=== PATIENT | male | born 1945 | race Caucasian/White ===

== ENCOUNTER → 2023-11-08 13:19 | Outpatient (REF) | payer MEDICARE, BC, SELFPAY ==
[2023-11-08 14:20] LABS: % Basophils 0.9 % (0-2); % Eosinophils 3.6 % (0-6); % Immature Granulocytes 0.6 % (0-0.5); % Lymphocytes 16.2 % (20.5-51.1); % Monocytes 8.3 % (1.7-9.3); % Neutrophils 70.4 % (42.2-75.2); Absolute Basophils 0.1 10^3/uL (0-0.2); Absolute Eosinophils 0.3 10^3/uL (0-0.7); Absolute Immature Granulocytes 0.1 10^3/uL (0-0.05); Absolute Lymphocytes 1.4 10^3/uL (1.2-3.4); Absolute Monocytes 0.7 10^3/uL (0.1-0.6); Absolute Neutrophils 6.2 10^3/uL (1.4-6.5); Hematocrit 51.8 % (39.0-52.0); Hemoglobin 17.2 g/dL (13.0-18.0); Mean Corp Hgb Conc. 33.2 g/dL (33.0-37.0); Mean Corpuscular Hgb 31.7 pg (27.0-31.0); Mean Corpuscular Volume 95.6 fL (80.0-94.0); Mean Platelet Volume 11.8 fL (7.4-10.4); Nucleated Red Blood Cells % 0 % (-); Platelet Count 225 10^3/uL (130-400); Red Blood Cell Count 5.42 10^6/uL (4.70-6.10); Red Cell Dist. Width 13.6 % (11.5-14.5); White Blood Cell Count 8.8 10^3/uL (4.8-10.8)
== END ==
LOC: REG 13:19
PROVIDERS: ATTENDING PHYSICIAN Internal Medicine
DX: J45.50 Severe persistent asthma, uncomplicated (principal); J30.9 Allergic rhinitis, unspecified
CPT/HCPCS: 36415; 85025

== ENCOUNTER 2024-06-12 12:54 | Emergency (ER) | payer MEDICARE, BC, SELFPAY ==
[2024-06-12 12:58] VITALS: BP 161/102
[2024-06-12 14:00] VITALS: BP 159/98
[2024-06-12 15:02] VITALS: BP 146/71; BMI 26.6
--- NOTE | 2024-06-12 15:36 | ED.GENMED ---
History of Present Illness
General
Chief Complaint: Fall
Source: patient
Exam Limitations: none
Time Seen by Provider: 06/12/24 13:47
Nursing documentation reviewed up to this point in time: agreed with
History of Present Illness
History of Present Illness:
78 y/o M
History of anxiety and asthma and sinus disease and poor gait says that he was bending over this morning trying to plug something in and accidentally fell and bumped his head against the wall. He was already in a squatting position when he hit the
top of his head. He had no loss of consciousness and is not anticoagulated. He lives in a memory care unit at [place] because his has dementia. He does not. He does have chronic tremor and ambulatory dysfunction. He does not use alcohol.
He has a mild headache where he hit his head but otherwise is feeling at his baseline.
Past History
Past History
ED Past Medical History: Asthma, Psychiatric and Other (Essential tremor)
Social History
Tobacco: Non-smoker
Alcohol: None
Review of Systems
Review of Systems
Allergies reviewed?: Yes
All Other Systems: Not applicable
Phy Exam
Physical Exam
Physical Exam:
GENERAL: Alert , in no apparent distress
HEAD: NCAT no signs of trauma
NECK: no midline tenderness, active ROM intact, no paraspinal muscle tenderness;
EYE: pupils equal and reactive, EOMs intact.
ENT: o/p clr, mmm. no hemotympanum
CARDIAC: Regular rate and rhythm, no edema
LUNGS: Clear breath sounds bilaterally, no acute respiratory distress, no wheezes/rales/rhonchi
ABDOMEN: Soft, without focal tenderness, no r/g, no cvat
NEUROLOGICAL: Alert and oriented, no focal neuro deficits, CN intact, 5/5 strength, sensation intact patient does need some help getting up and walking. He seems to have a slightly wider base gait and a essential tremor with intention only
SKIN: Warm and dry,
MUSCULOSKELETAL: No edema, well perfused.
PSYCH: Normal and appropriate interaction.
Course
Orders/Labs/Results
Orders:
Orders
06/12/24 14:23
CT Head W/o Iv Contrast Urgent
Comment:
Reason For Exam: HIT HEAD
Vital Signs
Initial and Last Documented VS:
Initial Vital Signs
Temp Pulse Resp BP Pulse Ox
99.1 F 53 18 161/102 95
06/12/24 12:58 06/12/24 12:58 06/12/24 12:58 06/12/24 12:58 06/12/24 12:58
Last Documented Vital Signs
Temp Pulse Resp BP Pulse Ox
97.6 F 86 16 146/71 99
06/12/24 15:02 06/12/24 15:02 06/12/24 15:02 06/12/24 15:02 06/12/24 15:02
MDM/Problems Addressed
Differential Diagnosis Includes:
Mild head injury, concussion
MDM/Problems Addressed:
78-year-old male presents after hitting his head from a squatting position against the wall when he lost his balance. Patient had no vomiting or loss of consciousness. He does have chronic gait instability and essential tremor. This is unchanged.
He has no findings on exam other than his tremor and wider base gait and poor balance.
His daughter says this is all chronic
CT was negative. Patient does have sinus disease seen on CT and he does have sinus congestion increased from baseline. He is on a lot of meds like antihistamines and Flonase for his sinuses but he has had worsening symptoms in the last 2 weeks.
Given that we will prescribe amoxicillin. Follow-up with the family doctor encouraged. Daughter will take him home
*Critical Care Note
Total Time (30-74mins, 75-104mins- exclusive of procedures): Not Applicable
ED Attending Note
-
Portions of this chart may have been created with voice recognition software.� Occasional wrong word or��sound alike� substitutions may have occurred due to the inherent limitations of voice recognition software.
Discharge Plan
Departure
Patient Disposition: Home (Routine Discharge)
Date of Disposition: 06/12/24
Time of Disposition: 17:03
Patient with high blood pressure during this ER visit?: Yes
Condition: Fair
Covid-19: Not Applicable
Discharge Problem:
Minor closed head injury
Instructions: Head Injury in Adults (DC), Sinusitis, Adult ED
Prescriptions:
New
amoxicillin 875 mg tablet
875 mg PO Q12H Qty: 14 0RF
Referrals:
NONE,* [Family Provider] -
Activity Restrictions/Additional Instructions:
YOUR CAT SCAN SHOWED NO FINDIGNS ASSOCIATED WITH SIGNIFICANT HEAD INJURY
YOU DO HAVE SINUSITIS ON CAT SCAN AND WERE HAVING MORE SYMPTOMS SO YOU CAN TAKE AMOXICILLIN TWICE A DAY FOR 7 DAYS
PLEASE TAKE TYLENOL FOR PAIN NEEDED
RETURN FO RANY CONCERNS LIKE SEVERE HEADACHE, VOMITING, CONFUSION, WEAKNESS O RNAY CONCERNS.
Interventions
Interventions:
*Risk Screen - Suicide Last Done: 06/12/24 13:01
*General Assessment Last Done: 06/12/24 13:01
*Neglect/Abuse Screening Last Done: 06/12/24 13:01
ED- Fall Risk Assessment Last Done: 06/12/24 15:02
*ED COVID-19 Vaccine History Last Done: 06/12/24 15:02
*Nursing Disposition Last Done: 06/12/24 17:36
ED-Musculoskeletal Assessment Last Done: 06/12/24 13:54
ED- Neurological Assessment Last Done: 06/12/24 13:54
ED-Skin Assessment Last Done: 06/12/24 15:02
Discharge Date and Time
Discharge Date/Time: 06/12/24 17:37
Print Language: YEMENI
== END 2024-06-12 17:37 | disposition home or self-care (01) ==
LOC: EMR 12:54
PROVIDERS: EMERGENCY PHYSICIAN Emergency Medicine
DX: S09.90XA Unspecified injury of head, initial encounter (principal); G44.309 Post-traumatic headache, unspecified, not intractable; R09.81 Nasal congestion; W19.XXXA Unspecified fall, initial encounter; R03.0 Elevated blood-pressure reading, without diagnosis of hypertension; J45.909 Unspecified asthma, uncomplicated; F41.9 Anxiety disorder, unspecified; G25.0 Essential tremor; H40.9 Unspecified glaucoma; R26.2 Difficulty in walking, not elsewhere classified; Z91.011 Allergy to milk products
CPT/HCPCS: 99284; 70450

== ENCOUNTER 2024-07-03 13:51 | Emergency (ER) | payer MEDICARE, BC, SELFPAY ==
[2024-07-03 13:55] VITALS: BP 130/91
[2024-07-03 14:54] VITALS: BP 136/85
[2024-07-03 14:59] VITALS: BMI 27.2
[2024-07-03 15:00] VITALS: BP 130/82
--- NOTE | 2024-07-03 15:26 | ED.GENMED ---
History of Present Illness
General
Chief Complaint: Breathing Problem
Time Seen by Provider: 07/03/24 15:07
History of Present Illness
History of Present Illness:
78-year-old male with history of asthma presenting to the emergency department for progressive dyspnea. Patient arrives with daughter who reports in the past month patient has had increasing shortness of breath and cough. She brought him to the
primary care office today, who was concerned that oxygenation was 90-92%, patient seemed dyspneic, so advised that he come to the hospital. Patient denies any chest pain. No recent fever. No known sick contacts. Patient denies any abdominal
pain. No history of intubations. Reports recent COVID and flu swab that was negative. Shortness of breath is worse with any type of exertion
Past History
Past History
ED Past Medical History: Asthma, Psychiatric and Other (Essential tremor)
Social History
Tobacco: Non-smoker
Alcohol: None
Phy Exam
Physical Exam
Physical Exam:
General: Well-appearing, no clinical signs of dehydration, nontoxic and in no acute distress
HEENT: protecting airway
Neck: appears supple
CV: Normal heart rate, regular rhythm, no evidence of cyanosis
Resp: No accessory muscle use, no increased work of breathing, lungs clear to auscultation bilaterally
Abd: Soft and non-distended, no tenderness to palpation
Extremities: No deformities, no swelling
Neuro: alert, no focal neurologic deficit
: deferred
Rectal: deferred
Psych: Normal affect
Skin: Intact
Scores
Heart Failure Risk
Heart Failure Risk Score: Not Applicable
Course
Orders/Labs/Results
Orders:
Orders
07/03/24 14:00
Electrocardiogram (*1) Urgent
Reason for Study: Shortness of Breath
07/03/24 14:01
EKG- Treatment ONCE
07/03/24 15:22
Ipratropium/Albuterol Sulfate [Duoneb] 3 ml INH R NOW ONE
MethylPREDNISolone PF [Solu-Medrol Pf] 125 mg IV NOW STA
07/03/24 15:23
CR Chest - 2 Views Urgent
Comment:
Reason For Exam: SOB, asthma, cough
07/03/24 15:29
Comprehensive Metabolic Panel Urgent
07/03/24 15:31
COVID-19 Antigen Urgent
Source: Nasal Swab
Complete Blood Count/With Diff Urgent
Influenza A+B Rapid Molecular Urgent
YVONNE Source: Nasal Swab
Specimen Description:
07/03/24 15:32
NT-proBNP Urgent
Abnormal Lab Results
07/03/24 07/03/24
15:29 15:31
MCH 31.5 H pg
(27.0-31.0)
MPV 10.8 H fL
(7.4-10.4)
Absolute Monos (auto) 0.8 H 10^3/uL
(0.1-0.6)
Lymphocytes % 14.3 L %
(20.5-51.1)
Eosinophils % 7.7 H %
(0-6)
Glucose 105 H mg/dl
(70-99)
AST 63 H U/L
(17-59)
ALT 63 H U/L
(0-50)
07/03/24 15:31
07/03/24 15:29
Vital Signs
Initial and Last Documented VS:
Initial Vital Signs
Temp Pulse Resp BP Pulse Ox
98.0 F 104 16 130/91 94
07/03/24 13:55 07/03/24 13:55 07/03/24 13:55 07/03/24 13:55 07/03/24 13:55
Last Documented Vital Signs
Temp Pulse Resp BP Pulse Ox
98.0 F 86 16 131/80 94
07/03/24 13:55 07/03/24 16:00 07/03/24 13:55 07/03/24 16:00 07/03/24 17:00
MDM/Problems Addressed
MDM/Problems Addressed:
78-year-old male with history of asthma presenting for worsening shortness of breath over the past month. Vital signs are normal.
On exam, patient is resting comfortably, no acute respiratory distress, no increased work of breathing. Benign lung exam, no focal abnormal lung sounds. Given reported symptoms, will screen with laboratory analysis and chest x-ray imaging to
evaluate constipation infectious pathology. Will send viral swabs. Will evaluate for pulmonary edema and obtain BNP in the setting of possible CHF. For treatment, patient requesting DuoNeb and steroids. Will start. Will reassess for improvement
and obtain ambulatory pulse ox
17:20 -patient's labs are unremarkable. Chest x-ray without acute cardiopulmonary disease. No leukocytosis. Normal BNP. Patient ambulated, no increased work of breathing, normal saturations. At this time continue to suspect mild asthma as
etiology of patient's symptoms. Feel stable for discharge, family in agreement. Will provide prescription for steroid. Return precautions discussed and patient verbalized understanding
*EKG
Interpreted by ED Provider?: Yes
EKG Intrepretation Date: 07/03/24
EKG Intrepretation Time: 15:33
Interpretation: normal
Comparison EKG: no comparison EKG present
Heart Rate: 95
Rate: normal
Rhythm: sinus
[place]: left axis deviation
Interval: normal interval
QRS Pattern: normal QRS
Ischemia: no ischemia
*Critical Care Note
Total Time (30-74mins, 75-104mins- exclusive of procedures): Not Applicable
ED Attending Note
-
Portions of this chart may have been created with voice recognition software.� Occasional wrong word or��sound alike� substitutions may have occurred due to the inherent limitations of voice recognition software.
Discharge Plan
Departure
Patient Disposition: Home (Routine Discharge)
Date of Disposition: 07/03/24
Time of Disposition: 17:26
Patient with high blood pressure during this ER visit?: No
Condition: Good
Discharge Problem:
Shortness of breath, Asthma exacerbation
Instructions: Asthma, Adult (DC), Shortness of Breath (Dyspnea) (DC)
Prescriptions:
New
prednisone 20 mg tablet
40 mg PO DAILY 5 Days Qty: 10 0RF
No Action
amoxicillin 875 mg tablet
875 mg PO Q12H Qty: 14 0RF
Referrals:
Ed Morris PA-C [Family Provider] -
Activity Restrictions/Additional Instructions:
You were seen in the emergency department for shortness of breath
You were found to have laboratory work and chest x-ray imaging, as well as viral swabs. You were prescribed a steroid
Please follow-up closely with your primary care physician.
Return to the emergency department for any worsening of your symptoms, or any development of chest pain, difficulty breathing, abdominal pain with persistent vomiting and inability to tolerate food or liquid by mouth (concern for dehydration),
weakness, headache or confusion, fever greater than 100.4, or any additional symptoms that are concerning to you.
Thank you for choosing [facility].
Interventions
Interventions:
*Risk Screen - Suicide Last Done: 07/03/24 13:55
*General Assessment Last Done: 07/03/24 14:59
*Neglect/Abuse Screening Last Done: 07/03/24 13:55
*ED COVID-19 Vaccine History Last Done: 07/03/24 14:59
*Nursing Disposition Last Done: 07/03/24 17:53
ED- Cardiac Assessment Last Done: 07/03/24 14:59
ED- Pulmonary Assessment Last Done: 07/03/24 14:59
Discharge Date and Time
Discharge Date/Time: 07/03/24 18:18
Print Language: ZAMBIAN
[2024-07-03] MEDS: SOLU-MEDROL PF 125 MG IV (15:33)
[2024-07-03] MEDS: DUONEB 3 ML INH (15:33)
[2024-07-03 15:51] LABS: % Eosinophils 7.7 % (0-6); % Immature Granulocytes 0.4 % (0-0.5); % Lymphocytes 14.3 % (20.5-51.1); % Monocytes 8.5 % (1.7-9.3); % Neutrophils 68.1 % (42.2-75.2); Absolute Basophils 0.1 10^3/uL (0-0.2); Absolute Eosinophils 0.7 10^3/uL (0-0.7); Absolute Lymphocytes 1.3 10^3/uL (1.2-3.4); Absolute Monocytes 0.8 10^3/uL (0.1-0.6); Absolute Neutrophils 6.1 10^3/uL (1.4-6.5); Hematocrit 47.9 % (39.0-52.0); Hemoglobin 16.2 g/dL (13.0-18.0); Mean Corp Hgb Conc. 33.8 g/dL (33.0-37.0); Mean Corpuscular Hgb 31.5 pg (27.0-31.0); Mean Platelet Volume 10.8 fL (7.4-10.4); Nucleated Red Blood Cells % 0 % (-); Platelet Count 204 10^3/uL (130-400); Red Blood Cell Count 5.15 10^6/uL (4.70-6.10); Red Cell Dist. Width 14.4 % (11.5-14.5)
[2024-07-03 16:00] VITALS: BP 131/80
[2024-07-03 16:05] LABS: COVID-19 Antigen Negative (Negative)
[2024-07-03 16:12] LABS: NT-proBNP 178 pg/ml
[2024-07-03 16:20] LABS: ALT (SGPT) 63 U/L (0-50); AST (SGOT) 63 U/L (17-59); Albumin 3.8 g/dl (3.5-5.0); Alkaline Phosphatase 124 U/L (38-126); Blood Urea Nitrogen 18 mg/dl (9-20); Carbon Dioxide 26 mmol/L (22-30); Chloride 103 mmol/L (98-107); Estimated Creatinine Clearance 56 ml/min; Glucose 105 mg/dl (70-99); Potassium 4.6 mmol/L (3.5-5.1); Sodium 139 mmol/L (135-145); Total Bilirubin 0.5 mg/dl (0.2-1.3); Total Protein 6.8 g/dl (6.3-8.2); eGFR > 60.00
== END 2024-07-03 18:18 | disposition home or self-care (01) ==
LOC: EMR 13:51
PROVIDERS: EMERGENCY PHYSICIAN Student in an Organized Health Care Education/Training Program; FAMILY PHYSICIAN Physician Assistant Medical
DX: J45.901 Unspecified asthma with (acute) exacerbation (principal)
CPT/HCPCS: 96374; 94640; 99285; 71046; 80053; 83880; 85025; 87502; 87811; 93005

== ENCOUNTER 2024-11-20 00:36 | Inpatient (IN) | payer MEDICARE, SELFPAY ==
[2024-11-19] VITALS (12 sets, daily range): BP systolic 136–172; BP diastolic 73–112; BMI 26.8
[2024-11-19 16:47] LABS: % Basophils 1.1 % (0-2); % Eosinophils 8.7 % (0-6); % Immature Granulocytes 0.4 % (0-0.5); % Lymphocytes 15.7 % (20.5-51.1); % Monocytes 9.1 % (1.7-9.3); Absolute Basophils 0.1 10^3/uL (0-0.2); Absolute Lymphocytes 1.8 10^3/uL (1.2-3.4); Absolute Neutrophils 7.3 10^3/uL (1.4-6.5); Hematocrit 54.4 % (39.0-52.0); Hemoglobin 18.2 g/dL (13.0-18.0); Mean Corp Hgb Conc. 33.5 g/dL (33.0-37.0); Mean Corpuscular Hgb 32.1 pg (27.0-31.0); Mean Corpuscular Volume 95.9 fL (80.0-94.0); Mean Platelet Volume 10.9 fL (7.4-10.4); Nucleated Red Blood Cells % 0 % (-); Platelet Count 220 10^3/uL (130-400); Red Blood Cell Count 5.67 10^6/uL (4.70-6.10); Red Cell Dist. Width 13.9 % (11.5-14.5); White Blood Cell Count 11.3 10^3/uL (4.8-10.8)
[2024-11-19 17:03] LABS: ALT (SGPT) 71 U/L (0-50); AST (SGOT) 64 U/L (17-59); Albumin 4.4 g/dl (3.5-5.0); Alkaline Phosphatase 147 U/L (38-126); Blood Urea Nitrogen 21 mg/dl (9-20); Calcium 9.2 mg/dl (8.4-10.2); Carbon Dioxide 25 mmol/L (22-30); Chloride 102 mmol/L (98-107); Glucose 118 mg/dl (70-99); Sodium 141 mmol/L (135-145); Total Protein 7.7 g/dl (6.3-8.2); eGFR > 60.00
[2024-11-19 19:18] LABS: Troponin I < 0.012 ng/ml
--- NOTE | 2024-11-19 20:21 | ED.GENMED ---
History of Present Illness
General
Chief Complaint: Breathing Problem
Source: patient and family
Exam Limitations: none
Time Seen by Provider: 11/19/24 19:04
Nursing documentation reviewed up to this point in time: agreed with
History of Present Illness
History of Present Illness:
79-year-old male with past medical history of asthma presents to the ER for evaluation of progressive shortness of breath. Patient reports symptoms worsening over the past 3 months. The past few weeks his dyspnea has been extreme to the point that
he is essentially always sitting in bed cannot move around without significant dyspnea and wheezing. He has had cough productive of clear mucus. He denies any associated chest pain. He denies any fevers or chills. No significant swelling or pain
in the legs. He went to see his asthma specialist today to follow-up there he was noted to have low normal pulse ox and given his reported symptoms he was referred to the ER to be assessed. He is on albuterol and Trelegy�has been compliant without
improvement.
Past History
Past History
ED Past Medical History: Asthma, Psychiatric and Other (Essential tremor)
Social History
Tobacco: Non-smoker
Alcohol: None
Review of Systems
Review of Systems
All Other Systems: ROS reviewed and negative except as documented in HPI and ROS
Constitutional: Denies fever or chills
Respiratory: Reports cough and trouble breathing
Cardiac: Denies chest pain
ABD/GI: Denies abdominal pain, nausea or vomiting
: Denies flank pain
Musculoskeletal: Denies edema
Neurological: Denies headache
Phy Exam
Physical Exam
Physical Exam:
General: Awake, alert; hard of hearing; no acute distress
Head: Normocephalic, atraumatic
Eyes: Conjunctiva normal
Throat: Airway intact, handling secretions
Neck: Trachea midline, no JVD
Lungs: Patient has low normal pulse ox 92% on room air; respiratory rate acceptable, no increased work of breathing; he does have diffuse wheezing with diminished air movement
Heart: Regular rate and rhythm, no murmurs, gallops, or rubs
Abd: Soft, non distended, nontender
Neuro: No gross deficits
Skin: no rash
Extremities: No edema in extremities, equal pulses in all extremities
Scores
Heart Failure Risk
Heart Failure Risk Score: Not Applicable
Heart Score for Chest Pain Patients
STEMI patient?: Not applicable
Withdrawal Assessment of Alcohol
Withdrawal Assessment Completed?: Not applicable
Course
Orders/Labs/Results
Orders:
Orders
11/19/24 16:25
Electrocardiogram (*1) Urgent
Reason for Study: Shortness of Breath
EKG- Treatment ONCE
CR Chest - 2 Views Urgent
Comment:
Reason For Exam: cough
11/19/24 16:38
Complete Blood Count/With Diff Urgent
Comprehensive Metabolic Panel Urgent
11/19/24 18:37
Troponin I Urgent
11/19/24 20:04
Ipratropium/Albuterol Sulfate [Duoneb] 3 ml INH R NOW ONE
MethylPREDNISolone PF [Solu-Medrol Pf] 125 mg IV NOW STA
11/19/24 20:05
CT Chest PE Study Urgent
Comment:
Reason For Exam: worsening SOB
Abnormal Lab Results
11/19/24
16:38
WBC 11.3 H 10^3/uL
(4.8-10.8)
Hgb 18.2 H g/dL
(13.0-18.0)
Hct 54.4 H %
(39.0-52.0)
MCV 95.9 H fL
(80.0-94.0)
MCH 32.1 H pg
(27.0-31.0)
MPV 10.9 H fL
(7.4-10.4)
Absolute Neuts (auto) 7.3 H 10^3/uL
(1.4-6.5)
Absolute Monos (auto) 1.0 H 10^3/uL
(0.1-0.6)
Absolute Eos (auto) 1.0 H 10^3/uL
(0-0.7)
Lymphocytes % 15.7 L %
(20.5-51.1)
Eosinophils % 8.7 H %
(0-6)
BUN 21 H mg/dl
(9-20)
Glucose 118 H mg/dl
(70-99)
AST 64 H U/L
(17-59)
ALT 71 H U/L
(0-50)
Alkaline Phosphatase 147 H U/L
(38-126)
11/19/24 16:38
11/19/24 16:38
Vital Signs
Initial and Last Documented VS:
Initial Vital Signs
Temp Pulse Resp BP Pulse Ox
36.9 C 119 18 153/104 93
11/19/24 16:20 11/19/24 16:20 11/19/24 16:20 11/19/24 16:20 11/19/24 16:20
Last Documented Vital Signs
Temp Pulse Resp BP Pulse Ox
37.1 C 109 20 159/112 95
11/19/24 20:00 11/19/24 21:15 11/19/24 22:00 11/19/24 21:04 11/19/24 22:00
MDM/Problems Addressed
Differential Diagnosis Includes:
Asthma exacerbation, pneumonia, PE
MDM/Problems Addressed:
79-year-old male with a history of asthma presents with worsening dyspnea over the past 3 months worse over the past week or 2 associate with low normal pulse ox noted in asthma specialist office today. Vitals and exam as above. Labs sent in
triage CBC shows marginal leukocytosis no other clinically significant abnormalities�LFTs mildly elevated but stable. EKG shows sinus rhythm, troponin undetectable�denies any chest pain. He had a chest x-ray in triage reviewed by me shows no
pneumonia or pneumothorax. Check CTA to rule out PE. Treat with methylprednisolone DuoNeb. Reassess after the above.
CTA shows no PE but does show findings consistent with bronchitis as well as right lower lobe pneumonia. Cover with antibiotics. Patient's wheezing improved but remains tachycardic, low normal pulse ox. Admit for continued treatment. Case
discussed with hospitalist.
Chronic conditions affecting care:
Asthma
Acute Exacerbation and/or Progression of Chronic Illness:
Acutely hypertensive�no signs or symptoms of hypertensive emergency no indication for emergent antihypertensive treatment
Acute asthma exacerbation treated with steroids and DuoNebs
Acute Exacerbation and/or Progression of Chronic Illness: HTN
*Radiology
Radiology exam reviewed: preliminary read by ED provider and radiology read reviewed
*Pulse Oximetry
Patient hypoxic: no
*EKG
Interpreted by ED Provider?: Yes
Heart Rate: 118
Rate: tachycardiac
Rhythm: sinus, PVC's and sinus tachycardia
[place]: left axis deviation
Interval: normal interval
QRS Pattern: left vent hypertrophy
Ischemia: non-specific ST changes
*Critical Care Note
Total Time (30-74mins, 75-104mins- exclusive of procedures): Not Applicable
Data Reviewed
Review of Other/Old Records Reveals: Labs and Records
Source: patient, records and family
Patient Management
Discussion with other providers: Hospitalist (Discussed with hospitalist)
Escalation/DeEscalation of care consider admission/obs:
Admission indicated
ED Attending Note
-
Portions of this chart may have been created with voice recognition software.� Occasional wrong word or��sound alike� substitutions may have occurred due to the inherent limitations of voice recognition software.
Discharge Plan
Departure
Patient Disposition: Admit
Date of Disposition: 11/19/24
Time of Disposition: 22:43
Admit to doctor: [facility]
Presentation/result/management discussed w/ accepting MD/DO: Hospitalist
Discharge Problem:
Acute asthma exacerbation, Pneumonia
Prescriptions:
No Action
amoxicillin 875 mg tablet
875 mg PO Q12H Qty: 14 0RF
prednisone 20 mg tablet
40 mg PO DAILY 5 Days Qty: 10 0RF
Referrals:
Ed Morris PA-C [Family Provider] -
Interventions
Interventions:
*Risk Screen - Suicide Last Done: 11/19/24 16:20
*General Assessment Last Done: 11/19/24 16:20
*Neglect/Abuse Screening Last Done: 11/19/24 16:20
*ED- Fall Risk Assessment Last Done: 11/19/24 18:46
ED- Cardiac Assessment Last Done: 11/19/24 18:46
ED- Pulmonary Assessment Last Done: 11/19/24 18:46
Discharge Date and Time
Print Language: SLOVENIAN
[2024-11-19] MEDS: DUONEB 3 ML INH (20:30)
[2024-11-19] MEDS: SOLU-MEDROL PF 125 MG IV (20:30)
--- NOTE | 2024-11-19 22:58 | HPS.HSE ---
Family Physician
-
Family Physician: Ed Morris PA-C
Chief Complaint
-
shortness of breath
History of Present Illness
Mr. Markell Rice is a 79 yo man with hx asthma presents to the ER with progressive shortness of breath.
History obtained from patient and daughter at baseline. He has had a history of severe asthma since he was little. He is on Trelegy and albuterol as needed. Over past couple of months he has has persistent wheezing. He was treated with 7 days of
Augmentin 2 weeks ago without significant improvement. He was seen as outpatient today for follow up and sent to the ER. He has increased sputum production and fatigue, per daughter he isn't doing much but sitting in his chair. He completed a
course of steroids 4-6 weeks ago.
He moved up from [place] with (who has dementia) one year ago.
No recent fevers. No chest pain. No nausea/vomiting/diarrhea. No LE swelling. He is eating and drinking OK.
Medical History
Past Medical History
Past Medical History: Reports Other (asthma, essential tremor )
Past Surgical History: Reports Other
Social History
Tobacco: Non-smoker
Alcohol: None
Family History
Family History: Not pertinent
Allergies / Home Medications
Allergies reflects when Allergies were last updated in [facility].
Home Medications with original date entered in [facility]
Allergy/Medication List:
Allergies
Allergy/AdvReac Type Severity Reaction Status Date / Time
Milk Containing Products Allergy Nausea / Verified 11/19/24 16:20
(Dairy) Vomiting
Home Medications
amoxicillin 875 mg tablet 875 mg PO Q12H #14 tabs 06/12/24
prednisone 20 mg tablet 40 mg (2 x 20 mg) PO DAILY 5 days #10 tabs 07/03/24
* med rec needs to be confirmed
Review of Systems
-
History Source: Patient
A 12 point ROS was completed and negative except as noted: Yes
Physical Exam
Vital Signs
Vital Signs
Temp Pulse Resp BP Pulse Ox
98.7 F 109 20 159/112 95
11/19/24 20:00 11/19/24 21:15 11/19/24 22:00 11/19/24 21:04 11/19/24 22:00
Physical Exam
General: No Apparent Distress
HEENT: PERRLA
Respiratory: Wheezes
Cardiac: S1/S2 and Regular Rhythm
GI: Soft and Non Tender
Musculoskeletal: No Edema
Skin: Warm and Dry; No Rash
Neuro: AO x 3
Psych: Calm
Laboratory Results
-
11/19/24 16:38
11/19/24 16:38
Laboratory Results
Total Bilirubin 1.0 mg/dl (0.2-1.3) 11/19/24 16:38
AST 64 U/L (17-59) H 11/19/24 16:38
ALT 71 U/L (0-50) H 11/19/24 16:38
Alkaline Phosphatase 147 U/L (38-126) H 11/19/24 16:38
Troponin I < 0.012 ng/ml 11/19/24 18:37
Data Reviewed
-
Diagnostic Radiology: Report Reviewed by me
Lab Data: Labs Reviewed by me
Impression/Plan
-
Mr. Markell Rice is a 79 yo man with hx asthma presents to the ER with progressive shortness of breath.
Triage VS: T 36.9C, P 119, RR 18, BP 153/104, SpO2 93%
LABS: WBC 11.3, Hg 18.2, PLT 220, Na 141, K+ 5.0, Cl 102, CO2 25m, BUN 21, Cr 1.1, Glucose 118, T. Bili 1.0, AST 64, ALT 71, Alk Phos 147, Trop < 0.012
CXR
IMPRESSION:
1. Moderate to large right lower lobe airspace consolidation. Diagnostic possibilities are (1) right lower lobe pneumonia or (2) atelectasis.
2. 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
3. Fusiform ascending thoracic aortic aneurysm.
4. Mild subpleural airspace consolidation in the left lower lung (mild pneumonia or atelectasis).
Chest CT
IMPRESSION:
1. Moderate to large airspace consolidation in the right lower lobe. Small subpleural airspace consolidations in the left lower lobe and lingula. Diagnostic possibilities are (1) RIGHT LOWER LOBE PNEUMONIA and other smaller regions of pneumonia in
the left lung or (2) multifocal atelectasis.
2. Cylindrical and varicoid bronchiectasis in both upper lobes.
3. SEVERE BRONCHITIS in the LEFT LOWER LOBE.
4. LARGE RIGHT DIAPHRAGMATIC HERNIA containing the liver.
5. Fusiform ascending thoracic aortic aneurysm (4.3 cm diameter).
6. Mild bilateral hilar lymphadenopathy.
7. Solid 8 mm pulmonary nodules in the right middle lobe and lingula.
8. Large 11.5 cm right upper pole renal cyst.
9. Severe discogenic degenerative disease in the lower cervical spine.
MAR: IV Ceftriaxone/Azithromycin, IVF, methylprednisolone, duonebs
Sepsis 2/2 Right lower lobe Pneumonia
Acute Asthma Exacerbation
Severe Bronchitis
-patient s/p antibiotic and steroid courses as outpatient without improvement
-he is currenty not hypoxic, + wheezing on exam
-add on flu/covid
-Given recent treatment with Augmentin, will broaden abx to Cefepime and add on atypical coverage with Azithro
-standing Duonebs and PRN
-MECHANOTHERAPIST Trelegy
-Mucinex, [place]
-Pulmonary consult
Large diaphragmatic hernia - chronic
Pulmonary nodules
Elevated liver enzymes
-likely related to acute infection or recent abx use
-repeat liver enzymes tomorrow
DVT PPx lovenox subQ
DNR - discussed on admission
[2024-11-19] MEDS: NSS 1000 IV (23:07)
[2024-11-19] MEDS: ZITHROMAX INFUSION 250 IV (23:14)
[2024-11-19 23:32] LABS: Lactic Acid 1.7 mmol/L (0.7-2.0)
[2024-11-20] VITALS (8 sets, daily range): BP systolic 117–154; BP diastolic 75–105; PULSE 113; O2SAT 91; BMI 25.9
[2024-11-20 00:02] LABS: COVID-19 Antigen Negative (Negative)
[2024-11-20] MEDS: MUCINEX 600 MG PO ×2 (02:48→09:23)
[2024-11-20] MEDS: DECADRON 4 MG IV ×4 (05:43→23:09)
[2024-11-20] MEDS: STERILE WATER FOR INJECTION 10 ML IV ×3 (05:43→14:41)
[2024-11-20] MEDS: FLUSH (NSS) 4 FLUSH IV (05:44)
[2024-11-20] MEDS: MAXIPIME 1000 MG IV ×2 (05:44→12:40)
[2024-11-20] MEDS: SYMBICORT 80/4.5 MCG INHALER 2 PUFF INH (07:56)
[2024-11-20] MEDS: SPIRIVA RESPIMAT 2.5 MCG 2 PUFF INH (07:56)
[2024-11-20] MEDS: VENTOLIN NEBULES 2.5 MG INH (07:57)
[2024-11-20 08:33] LABS: % Basophils 0.2 % (0-2); % Immature Granulocytes 0.9 % (0-0.5); % Lymphocytes 10.3 % (20.5-51.1); % Monocytes 0.9 % (1.7-9.3); % Neutrophils 87.7 % (42.2-75.2); Absolute Immature Granulocytes 0.1 10^3/uL (0-0.05); Absolute Lymphocytes 0.6 10^3/uL (1.2-3.4); Absolute Monocytes 0.1 10^3/uL (0.1-0.6); Absolute Neutrophils 4.8 10^3/uL (1.4-6.5); Hematocrit 49.4 % (39.0-52.0); Hemoglobin 16.7 g/dL (13.0-18.0); Mean Corp Hgb Conc. 33.8 g/dL (33.0-37.0); Mean Corpuscular Hgb 32.1 pg (27.0-31.0); Mean Platelet Volume 11.7 fL (7.4-10.4); Nucleated Red Blood Cells % 0 % (-); Platelet Count 177 10^3/uL (130-400); Red Cell Dist. Width 13.7 % (11.5-14.5); White Blood Cell Count 5.4 10^3/uL (4.8-10.8)
--- NOTE | 2024-11-20 09:20 | W.PN.HOSP.TC ---
Today's Communication/Plan
-
Steroids. Antibiotics.
Assessment / Plan
Assessment / Plan
Physical exam:
General: Acutely ill
HEENT: Normocephalic, Atraumatic and Moist Mucous Membranes
Respiratory: Crackles in the right base; Bilateral wheezes; No Rales or Rhonchi
Cardiac: Regular Rhythm and S1/S2
GI: Soft, Nontender and Nondistended
Musculoskeletal: No Clubbing, No Cyanosis and No Edema
Neuro: Awake, Alert and Oriented
Psych: Calm
A/P:
Community-acquired pneumonia/probable sepsis:
Agree with IV antibiotics but changed to IV Rocephin and oral azithromycin to cover community-acquired organisms.
Negative influenza and COVID-19
Check strep and urine Legionella
Check sputum culture
PT eval
Discussed with at bedside
Asthma exacerbation:
Underlying moderate to severe persistent asthma on triple therapy
Continue IV steroid, dexamethasone 4 mg IV every 8
Continue bronchodilators
Pulmonary consult appreciated
Elevated LFTs:
Trending down appropriately
Can repeat as outpatient
Diaphragmatic hernia:
Moderate size by CT
Start PPI
DVT prophylaxis:
Lovenox SQ
CODE STATUS:
DNR
Anticipated Discharge: 24 - 48 hours
Subjective/Interval History
-
Date of Service: November 20, 2024
Patient complains of cough and shortness of breath. Afebrile.
Objective Data
-
Labs:
Laboratory Results
11/20/24
07:24
WBC 5.4
Hgb 16.7
Hct 49.4
Plt Count 177
Sodium Pending
Potassium Pending
Chloride Pending
Carbon Dioxide Pending
BUN Pending
Creatinine Pending
Glucose Pending
Calcium Pending
Total Bilirubin Pending
AST Pending
ALT Pending
Alkaline Phosphatase Pending
Vital Signs:
Vital Signs
Temp Pulse Resp BP Pulse Ox
97.6 F 93 18 154/105 95
11/20/24 07:45 11/20/24 08:02 11/20/24 08:02 11/20/24 07:45 11/20/24 08:02
I&O
11/19/24 11/20/24 11/21/24
06:59 06:59 06:59
Intake Total 120 / 120
Balance 120 / 120
--- NOTE | 2024-11-20 09:25 | CON.PUL ---
Consultation
Consultation Request
Date/Time Consultation Requested: 11/20/2024-8 AM
Date/Time Consultation Performed: 11/20/2024-8:30 AM
Requesting Provider: Hospitalist
Performing Provider: Dr. Mascorro
Reason for Consultation: Asthma exacerbation
Medical History
-
Chief Complaint: Shortness of breath
History of Present Illness:
87-year-old male lifelong non-smoker with a history of asthma recently moved to this area followed by Dr. Morris I believe maintained on Trelegy and albuterol admitted with a couple months of persistent wheezing and shortness of breath unresponsive
to outpatient therapy including antibiotics and steroids-pulmonary consulted for asthma 11/20/2024. The patient is somewhat of a poor historian. History suggest that he moved up from [place] and the patient states that he recently moved from
[place]. He believes he follows Dr. Morris. He told me he was on Flovent and history suggest he was on Trelegy as an outpatient. Nonetheless he complains of chronic wheezing and shortness of breath. Currently he is not short of breath at rest
and has no chest pain, chest tightness has a nonproductive cough. He did not complain of any abdominal pain, reflux, focal weakness or increased lower extremity swelling.
Past Medical History
Past Medical History: None (Asthma-suspect moderate to severe persistent. Essential tremor. Specifically no history of CAD, renal, gastrointestinal or neurologic disease)
Social History
Tobacco: Non-smoker
Alcohol: None
Drug: None
Personal:
Living: With Family
Occupational Exposures: No known asbestos exposure
Environmental Exposures: No known tuberculosis exposure
Family History
Family History: Reviewed & Not Pertinent
Allergies / Home Medications
Allergies
Allergy/AdvReac Type Severity Reaction Status Date / Time
Milk Containing Products Allergy Nausea / Verified 11/19/24 16:20
(Dairy) Vomiting
Home Medications
�Medication �Instructions �Recorded �Confirmed �Last Taken �Type
amoxicillin 875 mg tablet 875 mg PO Q12H #14 tabs 06/12/24 Unknown Rx
prednisone 20 mg tablet 40 mg (2 x 20 mg) PO DAILY 5 days 07/03/24 Unknown Rx
#10 tabs
fluticasone fur. 100 mcg-umeclid 1 inh inhalation DAILY 11/19/24 11/19/24 Unknown History
62.5 mcg-vilant 25 mcg
inhalat.powder (Trelegy Ellipta)
Review of Systems
-
Unable to Obtain full review of systems at this time due to: Other (Per HPI)
Vitals / Labs / Diagnostic Testing
Vital Signs
Temp Pulse Resp BP Pulse Ox
97.6 F 93 18 154/105 95
11/20/24 07:45 11/20/24 08:02 11/20/24 08:02 11/20/24 07:45 11/20/24 08:02
Lab Data
11/20/24 07:24
Microbiology
11/19/24 23:20 Nasal Swab Influenza Types A & B (VERONICA) - Final
Negative for Influenza A & B, NAAT
Negative results must be combined with clinical observations
and patient history.
Nucleic Acid Amplification test (NAAT)performed on the
[employer] platform.
Diagnostic Testing:
Physical Exam
-
Exam:
Well-nourished and well-developed in no apparent distress
HEENT-atraumatic, normocephalic
Neck-supple, no JVD, no bruit
Heart-regular rate and rhythm-systolic murmur
Chest with diminished breath sounds, prolonged expiratory time, expiratory wheezes and no crackles
Back without tenderness
Abdomen-soft, nontender, nondistended, no hepatosplenomegaly
Extremities-no cyanosis, clubbing, edema and good peripheral pulses
Integument-intact, no rashes, lesions or ecchymosis
Neurology-alert and oriented, nonfocal motor and sensory exam
Assessment
-
87-year-old male lifelong non-smoker with a history of asthma recently moved to this area followed by Dr. Morris I believe maintained on Trelegy and albuterol admitted with a couple months of persistent wheezing and shortness of breath unresponsive
to outpatient therapy including antibiotics and steroids-pulmonary consulted for asthma 11/20/2024.
Asthma-moderate to severe persistent with acute exacerbation
Pneumonia-right lower [id number]
Bronchiectasis
Pulmonary nodules
Transaminitis
Mild leukocytosis
Polycythemia on admission-hemoglobin 18.2
Hyperglycemia
Metabolic acidosis
Conditions present prior to admission:
Asthma-suspect moderate to severe persistent.
Essential tremor.
Bronchiectasis
Pulmonary nodules
Specifically no history of CAD, renal, gastrointestinal or neurologic disease
Plan
Historically the patient has asthma-moderate to severe persistent maintained on triple therapy with acute/subacute exacerbation and pneumonia
Continue to closely monitor for progression of severe exacerbation-
Respiratory rate >30
Tachycardia >120
accessary muscle use
Inability to speak full sentences
Inability be supine
Pulsus paradox, etc.
Monitor PEF
Obtain ABG if necessary to assess for hypercapnia
Supplemental oxygen as needed
High flow oxygen if needed
BiPAP/NIV if necessary
Inhaled beta agonist-albuterol nebulizers 4 times daily
Inhaled muscarinic antagonist-on Spiriva as well as Symbicort 80/4.5
Systemic steroids-Decadron 4 mg IV every 8 hours
Mucolytic's-intensify
Mucus clearing devices
Consider vest therapy especially in light of bronchiectasis
Check cultures
Sputum culture
Empiric antibiotics-on cefepime and azithromycin
Eventually obtain allergy testing, IgE level, eosinophils, etc.
Consider Biologics such as Xolair -anti-IgE, Nucala-IL-5 inhibitor, Kfofrzp-DW-8 inhibitor, or Dupixent-I L4/13 inhibitor or Tezspire
DVT prophylaxis-on Lovenox
Nutrition
Early mobilization
Recommend outpatient pulmonary [id number], consideration towards Biologics, radiographic follow-up of pneumonia as well as pulmonary nodules
Diagnostic data:
Chest x-ray 07/03/2024-NAD
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 chest 11/19/2024-no pulmonary embolism, large airspace consolidation right lower lobe, bronchiectasis both upper lobes, large right diaphragmatic hernia, mild bilateral hilar lymphadenopathy, solid 8 mm pulmonary nodule right middle lobe and
lingula, large 11.5 cm right upper pole renal cyst
Data Reviewed
-
EKG: Report reviewed by me
Radiology: Image personally visualized and interpreted and Report reviewed by me
CT Scan: Image personally visualized and interpreted and Report reviewed by me
Medical Tests (Nuc Med, Echo etc): Report reviewed by me
Labs: Labs reviewed by me
Old Records: Reviewed
Total Time Spent with Patient (in minutes): 55
[2024-11-20 09:38] LABS: ALT (SGPT) 62 U/L (0-50); AST (SGOT) 45 U/L (17-59); Albumin 3.8 g/dl (3.5-5.0); Alkaline Phosphatase 117 U/L (38-126); Blood Urea Nitrogen 18 mg/dl (9-20); Calcium 8.4 mg/dl (8.4-10.2); Carbon Dioxide 18 mmol/L (22-30); Chloride 105 mmol/L (98-107); Direct Bilirubin 0.2 mg/dl (0.0-0.4); Estimated Creatinine Clearance 71 ml/min; Glucose 174 mg/dl (70-99); Potassium 4.6 mmol/L (3.5-5.1); Sodium 137 mmol/L (135-145); Total Bilirubin 1.1 mg/dl (0.2-1.3); Total Protein 6.8 g/dl (6.3-8.2); eGFR > 60.00
[2024-11-20] MEDS: DUONEB 3 ML INH ×3 (10:44→17:49)
[2024-11-20] MEDS: PROTONIX 40 MG PO (14:41)
[2024-11-20] MEDS: ROCEPHIN 1000 MG IV (14:41)
--- NOTE | 2024-11-20 16:40 | CM ---
CM reviewed medical records. Patient lives at [facility]. Plan to return on discharge.
PLAN: Return to [place].
[2024-11-20] MEDS: PULMICORT 0.5 MG INH (17:49)
[2024-11-20] MEDS: LOVENOX 40 MG SC (17:53)
[2024-11-20] MEDS: MUCINEX 1200 MG PO (21:03)
[2024-11-20] MEDS: ZITHROMAX 500 MG PO (21:03)
--- NOTE | 2024-11-21 07:13 | PTCARENOTE ---
When pt awakened during the night when roommate admitted pt very confused, asking where he was, where his was, not understanding what was going on. Attempts at reorientation not completely successful but pt was able to fall asleep again.
[2024-11-21] MEDS: DUONEB 3 ML INH ×5 (07:25→23:54)
[2024-11-21] MEDS: PULMICORT 0.5 MG INH (07:26)
[2024-11-21] MEDS: MUCINEX 1200 MG PO ×2 (07:33→19:40)
[2024-11-21] MEDS: PROTONIX 40 MG PO (07:33)
[2024-11-21] MEDS: DECADRON 4 MG IV ×2 (07:33→19:40)
[2024-11-21 07:41] LABS: % Basophils 0.1 % (0-2); % Immature Granulocytes 0.7 % (0-0.5); % Lymphocytes 7.2 % (20.5-51.1); Absolute Immature Granulocytes 0.1 10^3/uL (0-0.05); Absolute Lymphocytes 0.7 10^3/uL (1.2-3.4); Absolute Monocytes 0.4 10^3/uL (0.1-0.6); Absolute Neutrophils 8.1 10^3/uL (1.4-6.5); Hematocrit 46.9 % (39.0-52.0); Hemoglobin 15.8 g/dL (13.0-18.0); Mean Corp Hgb Conc. 33.7 g/dL (33.0-37.0); Mean Corpuscular Volume 94.9 fL (80.0-94.0); Mean Platelet Volume 11.4 fL (7.4-10.4); Nucleated Red Blood Cells % 0 % (-); Platelet Count 155 10^3/uL (130-400); Red Blood Cell Count 4.94 10^6/uL (4.70-6.10); Red Cell Dist. Width 14.1 % (11.5-14.5); White Blood Cell Count 9.2 10^3/uL (4.8-10.8)
[2024-11-21 07:47] LABS: Blood Urea Nitrogen 22 mg/dl (9-20); Calcium 8.9 mg/dl (8.4-10.2); Carbon Dioxide 23 mmol/L (22-30); Chloride 106 mmol/L (98-107); Estimated Creatinine Clearance 63 ml/min; Glucose 143 mg/dl (70-99); Potassium 4.3 mmol/L (3.5-5.1); Sodium 138 mmol/L (135-145); eGFR > 60.00
[2024-11-21 07:56] VITALS: BP 152/100
--- NOTE | 2024-11-21 08:41 | W.PN.HOSP.TC ---
Today's Communication/Plan
-
Steroids bronchodilator and antibiotics. CT of the head
Assessment / Plan
Assessment / Plan
Physical exam:
General: Acutely ill
HEENT: Normocephalic, Atraumatic and Moist Mucous Membranes
Respiratory: Crackles in the right base; Bilateral wheezes; No Rales or Rhonchi
Cardiac: Regular Rhythm and S1/S2
GI: Soft, Nontender and Nondistended
Musculoskeletal: No Clubbing, No Cyanosis and No Edema
Neuro: Awake, Alert and Oriented
Psych: Calm
A/P:
Community-acquired pneumonia/probable sepsis:
Continue IV Rocephin and oral azithromycin.
Negative influenza and COVID-19
Check strep and urine Legionella
Check sputum culture
Blood cultures no growth
Discussed with family prior
PT recommends home health
Asthma exacerbation:
Underlying moderate to severe persistent asthma on triple therapy
Continue IV steroid, dexamethasone 4 mg IV every 8--> decreased to 4 mg IV every 12 hours today and follow pulmonary recommendations.
Continue bronchodilators
Pulmonary consult appreciated
Delirium:
Decreased doses of steroid
Maintain structure environment
Obtain CT of the head
Elevated LFTs:
Trending down appropriately
Can repeat as outpatient
Diaphragmatic hernia:
Moderate size by CT
Start PPI
DVT prophylaxis:
Lovenox SQ
CODE STATUS:
DNR
Total time spent on today's encounter was 52 minutes which included time spent in counseling the patient/family regarding diagnosis and treatment plan as listed above, goals of care, and symptom management. Case was discussed with nursing staff,
specialists, and care coordinators/case management. All labs and imaging personally reviewed by me. Remainder the time spent in detailed review of previous records, lab data, imaging, and other medical provider documentation.
Anticipated Discharge: 24 - 48 hours
Subjective/Interval History
-
Date of Service: November 21, 2024
Patient still have some cough and shortness of breath but the more pressing issue he is very confused. Afebrile
Objective Data
-
Labs:
Laboratory Results
11/21/24
06:59
WBC 9.2
Hgb 15.8
Hct 46.9
Plt Count 155
Sodium 138
Potassium 4.3
Chloride 106
Carbon Dioxide 23
BUN 22 H
Creatinine 0.9
Glucose 143 H
Calcium 8.9
Vital Signs:
Vital Signs
Temp Pulse Resp BP Pulse Ox
97.0 F 99 24 152/100 94
11/21/24 07:56 11/21/24 07:56 11/21/24 07:56 11/21/24 07:56 11/21/24 07:56
I&O
11/20/24 11/21/24 11/22/24
06:59 06:59 06:59
Intake Total 120 / 120 240 / 240
Balance 120 / 120 240 / 240
[2024-11-21] MEDS: NSS (PRESERVATIVE FREE) 0.5 ML IV (10:27)
[2024-11-21] MEDS: ATIVAN 1 MG IV (10:27)
[2024-11-21] MEDS: STERILE WATER FOR INJECTION 10 ML IV (13:21)
[2024-11-21] MEDS: ROCEPHIN 1000 MG IV (13:21)
--- NOTE | 2024-11-21 13:54 | CM ---
CM following re: discharge planning.
Reviewed pt's chart, met with pt and spoke to [facility] wholesale representative Chitra.
Pt is an 79 year old male, admitted with primary dx of Community-acquired pneumonia/probable sepsis.
Per Chitra from [facility], pt lives with his spouse at [facility], ambulates with a walker, has supportive daughter. Per Chitra, pt is at their memory care only because of his spouse who has Dementia. Per
Chitra, pt does not have Dementia, has some forgetfulness. Per Chitra, they use [facility]. Chitra stated that pt will be able to return back to their memory care facility when medically stable.
PCP: Ed Morris
Pharmacy: [facility]
D/C plan: return back to [facility] when medically stable with most likely [facility]. .
CM will follow with discharge plan updates as hospitalization progresses,
[2024-11-21 15:30] VITALS: BP 128/79
--- NOTE | 2024-11-21 16:00 | W.PN.PUL3 ---
Today's Communication / Plan
-
Continue systemic steroids and monitor for worsening mental status
Hopefully we can transition to prednisone taper in the next 1-2 days
He takes Trelegy as an outpatient and this can be resumed upon discharge
His absolute eosinophil count was 1000 on admission, hence he is a good candidate for biologic therapy if asthma symptoms are not controlled on triple inhaler therapy after discharge
Continue with antibiotics and would complete 5 days worth of Z-Theo and 7 days worth of beta-lactam
Aspiration precautions
Check sputum culture if he can produce a decent sample
Check urine antigens for Legionella + strep pneumonia
Follow-up blood cultures from admission (NGTD)
Pulmonary service will continue following outpatient follow-up be arranged; prior medical records from his former doctor in [place] should be obtained, which can be done in outpatient setting
Assessment
-
87-year-old male lifelong non-smoker with a history of asthma recently moved to this area followed by Dr. Morris I believe maintained on Trelegy and albuterol admitted with a couple months of persistent wheezing and shortness of breath unresponsive
to outpatient therapy including antibiotics and steroids-pulmonary consulted for asthma 11/20/2024.
Asthma-moderate to severe persistent with acute exacerbation
Eosinophilia with absolute eosinophils 1000 on admission
Pneumonia-right lower [id number]-[id number]
Bronchiectasis
Pulmonary nodules
Transaminitis with elevated ALT on admission
Mild leukocytosis now resolved
Polycythemia on admission-hemoglobin 18.2 was likely due to hemoconcentration as this is now resolved
Hyperglycemia now resolved
Metabolic acidosis now resolved
Conditions present prior to admission:
Asthma-suspect moderate to severe persistent.
Essential tremor.
Bronchiectasis
Pulmonary nodules
Specifically no history of CAD, renal, gastrointestinal or neurologic disease
Plan
Historically the patient has asthma-moderate to severe persistent maintained on triple therapy with acute/subacute exacerbation and pneumonia
He says that he is from [place] and normally only takes prednisone during flareups and otherwise is on Flovent and albuterol
He recently moved up here from [place] with his as she has dementia and his children had insisted that he come appear to be closer to them
He is not the best historian and this is likely due to acute encephalopathy from steroids - family says that he is not normally confused like this
Continue to closely monitor for progression of severe exacerbation-
Respiratory rate >30
Tachycardia >120
accessary muscle use
Inability to speak full sentences
Inability be supine
Pulsus paradox, etc.
Obtain ABG if necessary to assess for hypercapnia
Supplemental oxygen as needed --> currently on room air breathing comfortably
Continue with DuoNebs QID + budesonide BID
Continue systemic steroids and wean as he clinically improves --> wean today from Decadron 4 mg IV q8hr to q12hr
Can likely transition to prednisone taper over the next 1-2 days
He would need to be seen in the pulmonary office for asthma management and possibly biologic therapy as his absolute eosinophil count was 1000 on admission
Continue mucolytics with Mucinex
Mucus clearing devices with flutter valve
Consider vest therapy especially in light of bronchiectasis
Blood cultures collected on 11/19 so far show NGTD
Collect respiratory culture if he can produce a decent sample
Patient was initially on cefepime/Zithromax, and cefepime was narrowed to ceftriaxone on 11/20
Would continue a standard 5-day Z-Theo and also complete a 7-day course of beta-lactam
Eventually obtain allergy testing, IgE level, eosinophils, etc.
Consider Biologics such as Xolair -anti-IgE, Nucala-IL-5 inhibitor, Zavpemh-GW-8 inhibitor, or Dupixent-I L4/13 inhibitor or Tezspire
DVT prophylaxis-on Lovenox
Nutrition
Early mobilization
Recommend outpatient pulmonary [id number], consideration towards Biologics, radiographic follow-up of pneumonia as well as pulmonary nodules
Pulmonary service will continue to follow along
Diagnostic data:
Chest x-ray 07/03/2024-NAD
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 chest 11/19/2024-no pulmonary embolism, large airspace consolidation right lower lobe, bronchiectasis both upper lobes, large right diaphragmatic hernia, mild bilateral hilar lymphadenopathy, solid 8 mm pulmonary nodule right middle lobe and
lingula, large 11.5 cm right upper pole renal cyst
Total time spent today was 36 minutes for this encounter. Time includes reviewing laboratory test/imaging results, reviewing pertinent medical records, obtaining and reviewing medical history, performing an appropriate exam, ordering medications,
tests and procedures. Time also includes documentation of this encounter, coordinating patient care and communicating with other healthcare professionals. Total time does not include separately billed tests performed on this date of service.
Subjective Data
-
Date of Service:
Date of Service: November 21, 2024
Chief Complaint: Pulmonary Follow Up
Subjective:
Patient seen evaluate this morning. Has been confused as per the nurse, not knowing where he is and not easily redirectable. Currently denies cough or shortness of breath. Says he has been up out of bed and has been breathing well. Currently on
room air breathing comfortably, saturating 96%. He denies chest pain, ROQUE, nausea, fevers or chills.
Review of Systems
General: Other (Negative unless mentioned above)
Objective Data
Data Reviewed
Vital Signs / I&O / Oxygen:
Vital Signs
Temp Pulse Resp BP Pulse Ox
97.0 F 99 24 152/100 94
11/21/24 07:56 11/21/24 07:56 11/21/24 07:56 11/21/24 07:56 11/21/24 07:56
Intake and Output
11/20/24 11/21/24 11/22/24
06:59 06:59 06:59
Intake Total 120 / 120 240 / 240
Balance 120 / 120 240 / 240
SaO2 94
Physical Exam
General: Respiratory Distress (negative), Comfortable, Chills (negative) and Sweats (negative)
HEENT: Normocephalic and Anicteric
Cardiovascular: S1-S2 and Peripheral Edema (negative)
Respiratory: Wheeze (Faintly heard upon expiration bilaterally), Crackles (negative), Rhonchi (negative), Non-Labored Respirations and Stridor (negative)
GI: Soft, Non Distended, Non Tender and Normal Bowel Sounds
Neurology: Awake, Alert and Tremors (negative)
Skin: Warm, Dry, Cyanosis (negative) and Jaundice (negative)
Labs/Micro/Reports
Lab Data
11/21/24 06:59
11/21/24 06:59
Microbiology
11/19/24 23:07 Blood/Venous Blood Culture - Preliminary
No Growth in 24 hours- Final report to follow
11/19/24 23:07 Blood/Venous Blood Culture - Preliminary
No Growth in 24 hours- Final report to follow
11/19/24 23:20 Nasal Swab Influenza Types A & B (VERONICA) - Final
Negative for Influenza A & B, NAAT
Negative results must be combined with clinical observations
and patient history.
Nucleic Acid Amplification test (NAAT)performed on the
[employer] platform.
--- NOTE | 2024-11-21 16:12 | PTCARENOTE ---
PCT entered pt room for 1500 vitals. Pt HR noted to be in 120s at that time. Hospitalist notified. Pt placed on tele monitor. ST on tele, HRs 110s-120s. EKG obtained, confirming sinus tachycardia. Vitals otherwise stable. Pt asymptomatic. Daughter
at bedside, call mantilla in reach.
[2024-11-21] MEDS: LOPRESSOR 5 MG IV (17:15)
[2024-11-21] MEDS: LOVENOX 40 MG SC (17:18)
--- NOTE | 2024-11-21 17:57 | PTCARENOTE ---
5mg Lopressor IV given for increased HRs. Pt remains in sinus tachycardia with HRs now down to 100s-110s.
[2024-11-21] MEDS: PULMICORT INH (19:05)
[2024-11-21 19:31] VITALS: BP 127/73
[2024-11-21] MEDS: ATIVAN 0.5 MG IV (19:51)
[2024-11-21] MEDS: NSS (PRESERVATIVE FREE) 0.25 ML IV (19:52)
[2024-11-21] MEDS: ZITHROMAX 500 MG PO (20:02)
[2024-11-21 23:19] VITALS: BP 131/76
--- NOTE | 2024-11-22 03:01 | PTCARENOTE ---
Pt remains confused this shift, disoriented to time and place, intermittently attempting to remove tele monitor, did removed IV catheter at beginning of shift (replaced). Paranoid about the whereabouts of his wallet (verified with daughter Nancy that
she took it home with her), intermittently throwing legs over side of bed. Medicated with Ativan 0.5 mg IV with some relief obtained, pt. sleeping more than awake. NSR on the monitor rate 90's with sleep. Expiratory wheezing present, PA pulse ox
94-95% - PRN Duoneb effective. Able to void in urinal with assist, outstanding urine specimen collected and sent. Bed alarm on.
[2024-11-22 03:21] VITALS: BP 140/85
[2024-11-22 07:27] LABS: Blood Urea Nitrogen 26 mg/dl (9-20); Calcium 8.7 mg/dl (8.4-10.2); Carbon Dioxide 24 mmol/L (22-30); Chloride 107 mmol/L (98-107); Estimated Creatinine Clearance 63 ml/min; Glucose 144 mg/dl (70-99); Potassium 4.4 mmol/L (3.5-5.1); Sodium 139 mmol/L (135-145); eGFR > 60.00
[2024-11-22 07:31] VITALS: BP 136/84
[2024-11-22] MEDS: DUONEB 3 ML INH ×4 (08:10→19:07)
[2024-11-22] MEDS: PULMICORT 0.5 MG INH ×2 (08:10→19:07)
--- NOTE | 2024-11-22 08:40 | W.PN.HOSP.TC ---
Addendum entered and electronically signed by Frankie Cruz MD 11/22/24 17:40:
Will do CTA chest stat r/o PE given intermittent tachycardia (could be explained by riojas/asthma/b-agonists but not entirely so will proceed further w/u)
Original Note:
Today's Communication/Plan
-
Steroids bronchodilators and antibiotics
Assessment / Plan
Assessment / Plan
Physical exam:
General: Acutely ill
HEENT: Normocephalic, Atraumatic and Moist Mucous Membranes
Respiratory: No crackles today; Bilateral wheezes persist; No Rales or Rhonchi
Cardiac: Regular Rhythm and S1/S2
GI: Soft, Nontender and Nondistended
Musculoskeletal: No Clubbing, No Cyanosis and No Edema
Neuro: Awake, Alert and Oriented
Psych: Calm
A/P:
Community-acquired pneumonia/probable sepsis:
Continue IV Rocephin and oral azithromycin.
Negative influenza and COVID-19
Checking strep and urine Legionella
Checking sputum culture
Blood cultures no growth
Discussed with daughter at bedside today
PT recommends home health
Asthma exacerbation:
Underlying moderate to severe persistent asthma on triple therapy
Continue IV steroid, dexamethasone 4 mg IV every 8--> decreased to 4 mg IV every 12 hours yesterday. Unfortunately still wheezing so requires IV steroid and hopefully will switch to oral over the next 24 to 48 hours.
Continue bronchodilators
Pulmonary is thinking probably back to biologic if not better on triple therapy as outpatient
Pulmonary consult appreciated
Delirium:
Decreased doses of steroid yesterday
Maintain structure environment
Continue benzodiazepines although not ideal but he is already on it as outpatient and it is working.
Obtained CT of the head yesterday and no acute intracranial abnormality
Sinus tachycardia:
Improving
Continue cardiac monitoring
Elevated LFTs:
Trended down appropriately
Can repeat as outpatient
Diaphragmatic hernia:
Moderate size by CT
Continue PPI
DVT prophylaxis:
Lovenox SQ
CODE STATUS:
DNR
Total time spent on today's encounter was 52 minutes which included time spent in counseling the patient/family regarding diagnosis and treatment plan as listed above, goals of care, and symptom management. Case was discussed with nursing staff,
specialists, and care coordinators/case management. All labs and imaging personally reviewed by me. Remainder the time spent in detailed review of previous records, lab data, imaging, and other medical provider documentation.
Anticipated Discharge: > 48 hours
Subjective/Interval History
-
Date of Service: November 22, 2024
Patient with less cough. Still some shortness of breath and wheezes. Still having delirium but much less today-daughter at bedside.
Objective Data
-
Labs:
Laboratory Results
11/22/24
05:42
Sodium 139
Potassium 4.4
Chloride 107
Carbon Dioxide 24
BUN 26 H
Creatinine 0.9
Glucose 144 H
Calcium 8.7
Vital Signs:
Vital Signs
Temp Pulse Resp BP Pulse Ox
97.7 F 91 17 136/84 95
11/22/24 07:31 11/22/24 08:13 11/22/24 08:13 11/22/24 07:31 11/22/24 08:13
I&O
11/21/24 11/22/24 11/23/24
06:59 06:59 06:59
Intake Total 960 / 960
Output Total 200 / 200
Balance 760 / 760
[2024-11-22] MEDS: PROTONIX 40 MG PO (08:53)
[2024-11-22] MEDS: DECADRON 4 MG IV ×2 (08:53→19:34)
[2024-11-22] MEDS: MUCINEX 1200 MG PO ×2 (08:53→19:33)
[2024-11-22 11:33] VITALS: BP 140/89
[2024-11-22] MEDS: STERILE WATER FOR INJECTION 10 ML IV (13:24)
[2024-11-22] MEDS: ROCEPHIN 1000 MG IV (13:24)
[2024-11-22 15:58] VITALS: BP 124/84
--- NOTE | 2024-11-22 16:30 | W.PN.PUL3 ---
Today's Communication / Plan
-
Continue systemic steroids and monitor for worsening mental status
Can likely transition to prednisone taper tomorrow to 40mg daily and wean by 10mg every 5th day until off
He takes Trelegy as an outpatient and this can be resumed upon discharge
His absolute eosinophil count was 1000 on admission, hence he is a good candidate for biologic therapy if asthma symptoms are not controlled on triple inhaler therapy after discharge
Continue with antibiotics and would complete 5 days worth of Z-Theo and 7 days worth of beta-lactam
Aspiration precautions
Check sputum culture if he can produce a decent sample
Urine antigens for Legionella + strep pneumonia negative
CTA chest pending
Follow-up blood cultures from admission (NGTD)
Believe patient can be discharged tomorrow assuming that CTA is negative for an acute PE (appears negative to my view) and he is ambulating without significant respiratory difficulty
Pulmonary service will continue following; outpatient follow-up be arranged; prior medical records from his former doctor in [place] should be obtained, which can be done in outpatient setting
Assessment
-
87-year-old male lifelong non-smoker with a history of asthma recently moved to this area followed by Dr. Morris I believe maintained on Trelegy and albuterol admitted with a couple months of persistent wheezing and shortness of breath unresponsive
to outpatient therapy including antibiotics and steroids-pulmonary consulted for asthma 11/20/2024.
Asthma-moderate to severe persistent with acute exacerbation
Eosinophilia with absolute eosinophils 1000 on admission
Pneumonia-right lower [id number]
Bronchiectasis
Pulmonary nodules
Transaminitis with elevated ALT on admission
Mild leukocytosis now resolved
Polycythemia on admission-hemoglobin 18.2 was likely due to hemoconcentration as this is now resolved
Hyperglycemia now resolved
Metabolic acidosis now resolved
Conditions present prior to admission:
Asthma-suspect moderate to severe persistent.
Essential tremor.
Bronchiectasis
Pulmonary nodules
Specifically no history of CAD, renal, gastrointestinal or neurologic disease
Plan
Historically the patient has asthma-moderate to severe persistent maintained on triple therapy with acute/subacute exacerbation and pneumonia
He says that he is from [place] and normally only takes prednisone during flareups and otherwise is on Flovent and albuterol
He recently moved up here from [place] with his as she has dementia and his children had insisted that he come appear to be closer to them
He is not the best historian and this is likely due to acute encephalopathy from steroids - family says that he is not normally confused like this
Continue to closely monitor for progression of severe exacerbation-
Respiratory rate >30
Tachycardia >120
accessary muscle use
Inability to speak full sentences
Inability be supine
Pulsus paradox, etc.
Obtain ABG if necessary to assess for hypercapnia in these scenarios
Supplemental oxygen as needed --> currently on room air breathing comfortably
Continue with DuoNebs QID + budesonide BID
Continue systemic steroids and wean as he clinically improves --> weaned from Decadron 4 mg IV q8hr to q12hr
Tomorrow would transition to prednisone taper starting at 40mg daily and wean by 10mg every 5th day until off
He would need to be seen in the pulmonary office for asthma management and possibly biologic therapy as his absolute eosinophil count was 1000 on admission
Continue mucolytics with Mucinex
Mucus clearing devices with flutter valve
Consider vest therapy especially in light of bronchiectasis in upper lobes
Hospitalist ordering a CTA chest given his intermittent tachycardia to rule out an acute PE; suspicion for acute PE is low, and he likely has tachycardia due to current asthma exacerbation on DuoNebs
Blood cultures collected on 11/19 so far show NGTD
Collect respiratory culture if he can produce a decent sample
Urine antigens for Legionella + strep pneumonia both negative
Patient was initially on cefepime/Zithromax, and cefepime was narrowed to ceftriaxone on 11/20
Would continue a standard 5-day Z-Theo and also complete a 7-day course of beta-lactam
Eventually obtain allergy testing, IgE level, eosinophils, etc. as an outpatient
Consider Biologics such as Xolair -anti-IgE, Nucala-IL-5 inhibitor, Xzturox-BJ-4 inhibitor, or Dupixent-I L4/13 inhibitor or Tezspire
DVT prophylaxis-on Lovenox
Nutrition
Early mobilization
Recommend outpatient pulmonary [id number], consideration towards Biologics, radiographic follow-up of pneumonia as well as pulmonary nodules
Dispo planning: Believe that the patient will be ready for discharge by tomorrow assuming a CTA chest does not show anything concerning and he continues to ambulate without respiratory difficulty.
Pulmonary service will continue to follow along
Diagnostic data:
Chest x-ray 07/03/2024-NAD
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
CT chest 11/19/2024-no pulmonary embolism, large airspace consolidation right lower lobe, bronchiectasis both upper lobes, large right diaphragmatic hernia, mild bilateral hilar lymphadenopathy, solid 8 mm pulmonary nodule right middle lobe and
lingula, large 11.5 cm right upper pole renal cyst
Total time spent today was 38 minutes for this encounter. Time includes reviewing laboratory test/imaging results, reviewing pertinent medical records, obtaining and reviewing medical history, performing an appropriate exam, ordering medications,
tests and procedures. Time also includes documentation of this encounter, coordinating patient care and communicating with other healthcare professionals. Total time does not include separately billed tests performed on this date of service.
Subjective Data
-
Date of Service:
Date of Service: November 22, 2024
Chief Complaint: Pulmonary Follow Up
Subjective:
Patient was seen and evaluated today at bedside. He is very eager to go home. Currently on room air breathing comfortably. 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 He is occasionally tachycardic,
but he denies chest pain, ROQUE, nausea, fevers or chills.
Review of Systems
General: Other (Negative unless mentioned above)
Objective Data
Data Reviewed
Vital Signs / I&O / Oxygen:
Vital Signs
Temp Pulse Resp BP Pulse Ox
97.7 F 91 17 136/84 95
11/22/24 07:31 11/22/24 08:13 11/22/24 08:13 11/22/24 07:31 11/22/24 08:13
Intake and Output
11/21/24 11/22/24 11/23/24
06:59 06:59 06:59
Intake Total 960 / 960
Output Total 200 / 200
Balance 760 / 760
SaO2 95
Physical Exam
General: Respiratory Distress (negative), Comfortable, Chills (negative) and Sweats (negative)
HEENT: Normocephalic and Anicteric
Cardiovascular: S1-S2, Peripheral Edema (negative) and Other (Tachycardic)
Respiratory: Wheeze (Expiratory wheeze heard bilaterally), Crackles (negative), Rhonchi (negative), Non-Labored Respirations and Stridor (negative)
GI: Soft, Non Distended, Non Tender and Normal Bowel Sounds
Neurology: Awake, Alert and Tremors (negative)
Skin: Warm, Dry, Cyanosis (negative) and Jaundice (negative)
Labs/Micro/Reports
Lab Data
11/21/24 06:59
11/22/24 05:42
Microbiology
11/22/24 02:03 Urine Legionella Urinary Antigen - Final
Negative for Legionella pneumophila Serogroup 1 antigen.
A negative result does not rule out the possiblity of
Legionella infection due to other serogroups or species of
Legionella. Clinical correlation is recommended.
11/22/24 02:03 Urine Streptococcus pneumoniae Antigen (M - Final
Negative for Streptococcus pneumoniae antigen.
A negative result does not exclude infection with
Streptococcus pneumoniae. Clinical correlation is
recommended.
11/19/24 23:07 Blood/Venous Blood Culture - Preliminary
No Growth in 48 hours- Final report to follow
11/19/24 23:07 Blood/Venous Blood Culture - Preliminary
No Growth in 48 hours- Final report to follow
11/19/24 23:20 Nasal Swab Influenza Types A & B (VERONICA) - Final
Negative for Influenza A & B, NAAT
Negative results must be combined with clinical observations
and patient history.
Nucleic Acid Amplification test (NAAT)performed on the
[employer] platform.
[2024-11-22] MEDS: LOVENOX 40 MG SC (17:14)
[2024-11-22] MEDS: LOPRESSOR 5 MG IV (17:55)
[2024-11-22 19:00] VITALS: BP 146/89
--- NOTE | 2024-11-22 19:47 | PTCARENOTE ---
pt on stretcher to CT
[2024-11-22] MEDS: ZITHROMAX 500 MG PO (21:38)
[2024-11-22 21:52] LABS: Glucose - Point of Care 242 mg/dl (70-99)
[2024-11-22 23:00] VITALS: BP 127/83
[2024-11-23 03:00] VITALS: BP 143/90
[2024-11-23] MEDS: PULMICORT 0.5 MG INH (07:18)
[2024-11-23] MEDS: DUONEB 3 ML INH ×2 (07:18→11:24)
[2024-11-23 07:28] VITALS: BP 136/85
--- NOTE | 2024-11-23 08:00 | W.PN.PUL3 ---
Today's Communication / Plan
-
Transition to oral prednisone with taper as below
Continue budesonide, DuoNebs, this should continue as outpatient in the short-term
Continue azithromycin, would complete 03/29
Discontinue vest therapy
Ambulate and assess home oxygen
Will require short-term follow-up
Disposition efforts
Assessment
-
87-year-old male lifelong non-smoker with a history of asthma recently moved to this area followed by Dr. Morris I believe maintained on Trelegy and albuterol admitted with a couple months of persistent wheezing and shortness of breath unresponsive
to outpatient therapy including antibiotics and steroids-pulmonary consulted for asthma 11/20/2024.
Asthma-moderate to severe persistent with acute exacerbation
Eosinophilia with absolute eosinophils 1000 on admission
Pneumonia-right lower [id number]
Bronchiectasis
Pulmonary nodules
Transaminitis with elevated ALT on admission
Mild leukocytosis now resolved
Polycythemia on admission-hemoglobin 18.2 was likely due to hemoconcentration as this is now resolved
Hyperglycemia now resolved
Metabolic acidosis now resolved
Conditions present prior to admission:
Asthma-suspect moderate to severe persistent.
Essential tremor.
Bronchiectasis
Pulmonary nodules
Specifically no history of CAD, renal, gastrointestinal or neurologic disease
Plan/recommendations
At this time, patient appears to be comfortable
Chest exam is clear with decreased breath sounds, no wheezing
Reviewed CT chest 11/22. Negative for pulm embolism, elevated right hemidiaphragm with atelectasis, patchy mosaic pattern per my review with occasional patchy areas of bullous disease
Historically the patient has asthma-moderate to severe persistent maintained on triple therapy with acute/subacute exacerbation and pneumonia
He says that he is from [place] and normally only takes prednisone during flareups and otherwise is on Flovent and albuterol
He recently moved up here from [place] with his as she has dementia and his children had insisted that he come appear to be closer to them
He is not the best historian and this is likely due to acute encephalopathy from steroids - family says that he is not normally confused like this
Moving forward
Consider transition to oral prednisone. Appears to be comfortable at this time
Increase activity, ambulate
Continue with DuoNebs QID + budesonide BID
Continue systemic steroids and wean as he clinically improves --> weaned from Decadron 4 mg IV q8hr to q12hr
Consider transition to oral prednisone today
wean by 10mg every 5th day until off
He would need to be seen in the pulmonary office for asthma management and possibly biologic therapy as his absolute eosinophil count was 1000 on admission
Continue mucolytics with Mucinex
Mucus clearing devices with flutter valve
Will discontinue vest therapy
Blood cultures collected on 11/19 so far show NGTD
Collect respiratory culture if he can produce a decent sample
Urine antigens for Legionella + strep pneumonia both negative
Patient was initially on cefepime/Zithromax, and cefepime was narrowed to ceftriaxone on 11/20
Would continue a standard 5-day Z-Theo and also complete a 7-day course of beta-lactam
Eventually obtain allergy testing, IgE level, eosinophils, etc. as an outpatient
Consider Biologics such as Xolair -anti-IgE, Nucala-IL-5 inhibitor, Xedhdfi-PU-6 inhibitor, or Dupixent-I L4/13 inhibitor or Tezspire
Importance of outpatient follow-up discussed
DVT prophylaxis-on Lovenox
Nutrition
Early mobilization
Recommend outpatient pulmonary [id number], consideration towards Biologics, radiographic follow-up of pneumonia as well as pulmonary nodules
Disposition efforts
Diagnostic data:
Chest x-ray 07/03/2024-NAD
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
CT chest 11/19/2024-no pulmonary embolism, large airspace consolidation right lower lobe, bronchiectasis both upper lobes, large right diaphragmatic hernia, mild bilateral hilar lymphadenopathy, solid 8 mm pulmonary nodule right middle lobe and
lingula, large 11.5 cm right upper pole renal cyst
Total time spent today was 38 minutes for this encounter. Time includes reviewing laboratory test/imaging results, reviewing pertinent medical records, obtaining and reviewing medical history, performing an appropriate exam, ordering medications,
tests and procedures. Time also includes documentation of this encounter, coordinating patient care and communicating with other healthcare professionals. Total time does not include separately billed tests performed on this date of service.
Subjective Data
-
Date of Service:
Date of Service: November 23, 2024
Chief Complaint: Pulmonary Follow Up
Subjective:
Patient is without complaints this morning. Presently on room air. Denies chest pain, chest tightness, lightheadedness, dizziness, palpitations
Objective Data
Data Reviewed
Vital Signs / I&O / Oxygen:
Vital Signs
Temp Pulse Resp BP Pulse Ox
97.9 F 93 16 136/85 95
11/23/24 07:28 11/23/24 07:28 11/23/24 07:28 11/23/24 07:28 11/23/24 07:28
Intake and Output
11/22/24 11/23/24 11/24/24
06:59 06:59 06:59
Intake Total 960 / 960 1440 / 1440
Output Total 200 / 200
Balance 760 / 760 1440 / 1440
SaO2 95
Physical Exam
General: Comfortable
HEENT: Normocephalic and Anicteric
Cardiovascular: S1-S2, Regular Rhythm, Murmur (n), Rub (n), Peripheral Edema (negative) and Other (Tachycardic)
Respiratory: Wheeze (Expiratory wheeze heard bilaterally), Crackles (negative), Rhonchi (negative), Non-Labored Respirations, Stridor (negative) and Other (Decreased)
GI: Soft, Non Distended, Non Tender and Normal Bowel Sounds
Neurology: Awake, Alert and Tremors (negative)
Skin: Warm, Dry, Cyanosis (negative) and Jaundice (negative)
Labs/Micro/Reports
Lab Data
11/21/24 06:59
11/22/24 05:42
Microbiology
11/19/24 23:07 Blood/Venous Blood Culture - Preliminary
No Growth in 72 hours- Final report to follow
11/19/24 23:07 Blood/Venous Blood Culture - Preliminary
No Growth in 72 hours- Final report to follow
11/22/24 02:03 Urine Legionella Urinary Antigen - Final
Negative for Legionella pneumophila Serogroup 1 antigen.
A negative result does not rule out the possiblity of
Legionella infection due to other serogroups or species of
Legionella. Clinical correlation is recommended.
11/22/24 02:03 Urine Streptococcus pneumoniae Antigen (M - Final
Negative for Streptococcus pneumoniae antigen.
A negative result does not exclude infection with
Streptococcus pneumoniae. Clinical correlation is
recommended.
[2024-11-23] MEDS: PROTONIX 40 MG PO (08:55)
[2024-11-23] MEDS: MUCINEX 1200 MG PO (08:55)
[2024-11-23] MEDS: DECADRON IV ×2 (08:55→08:57)
[2024-11-23] MEDS: DELTASONE 50 MG PO (09:00)
--- NOTE | 2024-11-23 10:43 | W.PN.HOSP.TC ---
Today's Communication/Plan
-
dc
Assessment / Plan
Assessment / Plan
A/P:
Community-acquired pneumonia/probable sepsis:
Clinically improved. Afebrile. White count normal.
On IV Rocephin and oral azithromycin. Will finish 5 days of Zithromax and 7 days of beta-lactam.
Negative influenza and COVID-19
Negative strep and urine Legionella
Blood cultures no growth
PT recommends home health
Asthma exacerbation:
Underlying moderate to severe persistent asthma on triple therapy
On IV steroid, dexamethasone 4 mg IV every 8--> decreased to 4 mg IV every 12 hours -- > now switched to oral prednisone with a slow taper.
Continue bronchodilators
Pulmonary is thinking probably back to biologic if not better on triple therapy as outpatient
Pulmonary input from today noted-cleared for discharge from their end.
Delirium:
Resolved. He is alert and oriented today. No agitation.
Maintain structure environment
Continue benzodiazepines although not ideal but he is already on it as outpatient and it is working.
CT of the head- no acute intracranial abnormality
Sinus tachycardia:
Improved
Elevated LFTs:
Trended down appropriately
Follow as outpatient
Diaphragmatic hernia:
Moderate size by CT
Continue PPI
DVT prophylaxis:
Lovenox SQ
CODE STATUS:
DNR
Medically stable for discharge to his facility today
Discussed with daughter regarding treatments and follow-up plan.
More than 30 minutes spent in discharge including
Final examination of the patient
Summarizing hospital stay
Instructions for continuing care to all relevant caregivers
Preparation of discharge records, prescriptions, and referral forms
Total time spent (in minutes): 35
Anticipated Discharge: Today
Subjective/Interval History
-
Date of Service: November 23, 2024
Feeling improved. Denies shortness of breath. Minimal cough.
No fever chills.
No nausea vomiting.
Denies any chest pain.
Denies any dizziness.
Keen to go home.
He states he is lives in [facility] and would like to go back there.
Objective Data
-
Vital Signs:
Vital Signs
Temp Pulse Resp BP Pulse Ox
97.9 F 93 16 136/85 95
11/23/24 07:28 11/23/24 07:28 11/23/24 07:28 11/23/24 07:28 11/23/24 07:28
I&O
11/22/24 11/23/24 11/24/24
06:59 06:59 06:59
Intake Total 960 / 960 1440 / 1440
Output Total 200 / 200
Balance 760 / 760 1440 / 1440
Physical Exam
-
General: Comfortable
Respiratory: Non Labored Respirations; Negative Wheezes or Accessory Resp Muscle Use
Cardiac: Regular Rhythm and S1/S2; Negative Tachycardic
GI: Soft
Neuro: AO x 3
Psych: Calm
--- NOTE | 2024-11-23 11:15 | CM ---
Addendum entered by Dodie Yang RN 11/23/24 11:23:
CM sent referral via [facility] to [facility].
PLAN: DC to [place] with [facility]
Addendum entered by Dodie Yang RN 11/23/24 11:19:
CM spoke with patient's daughter who will pick patient up to return to [facility].
Original Note:
Patient is medically ready for discharge back to [place]
[facility]
Report
[phone]
fax
[phone]
[2024-11-23 11:20] VITALS: BP 143/83; PULSE 98
[2024-11-23 11:31] VITALS: BP 143/83
--- NOTE | 2024-11-23 17:03 | W.DCSUMMARY ---
Discharge Summary
Discharge Data
Date of Admission: 11/20/24
Date of Discharge: 11/23/24
-
Pending Results: No
Hospital Course
Primary diagnosis:
Community-acquired pneumonia
Asthma exacerbation
Elevated liver function tests
Diaphragmatic hernia
Secondary diagnosis:
Essential tremor
Bronchiectasis
Pulmonary nodules
Hospital course:
87-year-old gentleman who is a non-smoker and history of asthma presented with couple of months of persistent wheezing and shortness of breath and was unresponsive to outpatient treatment with antibiotics and steroids. He was noted to be in asthma
exacerbation on admission. His asthma is moderate to severe persistent. He had eosinophilia with absolute eosinophils more than thousand on admission but improved. Chest imaging imaging raise the concern of right lower lobe pneumonia. Chest CT
imaging showed bronchiectasis and pulmonary nodules which is known. He was seen by pulmonary. He improved with steroids and antibiotics for community-acquired pneumonia. Once he was clinically stable he was discharged home and advised to
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
There was mild transaminitis and AST normalized and ALT improved to 62 alk phos in 4 as well. Unclear if it is related to infection. Follow-up as an outpatient.
Consultants on board:
Pulmonary-Isidoro Winn
Discharge Plan
-
Patient Disposition: Home with Home Care
Discharge Diagnosis/Procedures: Right lung pneumonia and asthma flare
Diet: As tolerated
Activity: As tolerated
Driving Restrictions: As prior to admission
Bathing Restrictions: None
Other Services: VN
Activity Restrictions/Additional Instructions:
Follow with your PCP in a week after discharge
Referrals:
Ed Morris PA-C [Family Provider] -
Russ Mascorro MD [Active] - in one to two weeks (Control PFTs, consideration towards Biologics, radiographic follow-up of pulmonary nodules and pneumonia)
Prescriptions:
New
prednisone 10 mg tablet
10 mg PO DIRECTED Qty: 75 0RF
Rx Instructions:
Start with 50mg daily and taper by 10mg every 5 days
guaifenesin 600 mg Tablet Extended Release 12hr
1,200 mg PO Q12 Qty: 14 0RF
pantoprazole 40 mg Tablet,Delayed Release (Dr/Ec)
40 mg PO DAILY Qty: 30 0RF
Rx Instructions:
while on steroids
budesonide 0.5 mg/2 mL Suspension For Nebulization
0.5 mg inhalation R BID Qty: 60 0RF
ipratropium-albuterol 0.5 mg-3 mg(2.5 mg base)/3 mL Solution For Nebulization
3 ml inhalation R QID Qty: 180 0RF
cefdinir 300 mg capsule
300 mg PO BID Qty: 8 0RF
azithromycin 250 mg Tablet
500 mg PO DAILY@2200 Qty: 5 0RF
Continued
Trelegy Ellipta 100-62.5-25 mcg Blister With Device
1 inh INHALATION DAILY
Discontinued
amoxicillin 875 mg tablet
875 mg PO Q12H Qty: 14 0RF
prednisone 20 mg tablet
40 mg PO DAILY 5 Days Qty: 10 0RF
Discharge Orders:
Discharge Patient (As Directed); Ordered 11/23/24
Ordered By: Rao Strange
Discharge Date and Time
Discharge Date/Time: 11/23/24 13:00
Print Language: [place] CITIZ[place]
== END 2024-11-23 13:00 | disposition home health service (06) | DRG 871 ==
LOC: 1 ACUTE 00:36
PROVIDERS: Hospitalist; Student in an Organized Health Care Education/Training Program; ADMITTING PHYSICIAN Student in an Organized Health Care Education/Training Program; ATTENDING PHYSICIAN Internal Medicine; EMERGENCY PHYSICIAN Emergency Medicine; FAMILY PHYSICIAN Physician Assistant Medical; OTHER PHYSICIAN Internal Medicine Critical Care Medicine
DX: A41.9 Sepsis, unspecified organism (principal); J18.9 Pneumonia, unspecified organism; J45.901 Unspecified asthma with (acute) exacerbation; J47.0 Bronchiectasis with acute lower respiratory infection; E87.20 Acidosis, unspecified; K44.9 Diaphragmatic hernia without obstruction or gangrene; G25.0 Essential tremor; D72.10 Eosinophilia, unspecified; I71.21 Aneurysm of the ascending aorta, without rupture; J40 Bronchitis, not specified as acute or chronic; N28.1 Cyst of kidney, acquired; Z66 Do not resuscitate; Z79.52 Long term (current) use of systemic steroids; R41.0 Disorientation, unspecified; R00.0 Tachycardia, unspecified; D75.1 Secondary polycythemia; Z11.52 Encounter for screening for COVID-19
CPT/HCPCS: 70450; 71046; 71275; 80048; 80053; 82248; 82962; 83605; 84484; 85025; 87040; 87449; 87502; 87811; 87899; 93005; 94640; 94667; 94669; 96365; 96375; 97116; 97163; 99285; Q9967

== ENCOUNTER 2024-12-17 05:16 | Inpatient (IN) | payer MEDICARE, BC, SELFPAY ==
[2024-12-17] VITALS (7 sets, daily range): BP systolic 91–136; BP diastolic 55–97; BMI 25.4
--- NOTE | 2024-12-17 01:34 | ED.GENMED ---
History of Present Illness
General
Chief Complaint: Abdominal Pain
Source: patient, ambulance crew, senior living records, previous radiology exam and previous hospital records (Recent hospitalization November 20 to November 23 for treatment of acute exacerbation of asthma, community-acquired pneumonia.)
Exam Limitations: clinical condition (Somewhat cantankerous, poorly cooperative/poorly communicative.)
Time Seen by Provider: 12/17/24 01:25
Nursing documentation reviewed up to this point in time: agreed with
History of Present Illness
History of Present Illness:
This is an 79-year-old gentleman who resides at a local senior living with his who apparently has advanced dementia. He himself has history of asthma, bronchiectasis with recent hospitalization November 20 to November 23 for treatment of acute
exacerbation of asthma associated with community-acquired pneumonia. Discharged November 23 with lengthy prednisone taper which has since completed. Completed a course of cefdinir as well as Zithromax.
He presents tonight via EMS with initial complaints of overall not feeling well with some abdominal discomfort that began after dinner tonight.
He admits to intermittent nausea but denies vomiting.
According to EMS, senior living staff concern for GI bleeding. Patient adamantly denies rectal bleeding, denies passing a stool tonight, denies vomiting. He reports no history of previous GI bleeds.
Takes no anticoagulants.
He currently denies abdominal pain.
Past History
Past History
ED Past Medical History: Asthma (Asthma/bronchiectasis), Psychiatric (Anxiety), Other (Essential tremor) and Other (Pneumonia with hospitalization November 2024)
ED Past Surgical History: Cholecystectomy
Social History
Tobacco: Non-smoker
Alcohol: None
Personal:
Living: senior living
Employment: Retired
Family History
Family History: Other (Noncontributory)
Phy Exam
Physical Exam
Physical Exam:
GENERAL: 79-year-old gentleman appears his stated age, awake and alert, somewhat angry, a bit cantankerous, marginally cooperative with HPI.
EYE: pupils equal and reactive. anicteric
NECK: Supple, nontender, no meningismus, no significant adenopathy.
ENT: posterior pharynx is clear, oral mucosa is dry, lips are dry. TM clear b/l, nares patent. Question scant coffee-ground material left lateral cheek region.
CARDIAC: Regular rate, intermittently irregular. No murmur.
LUNGS: Mildly decreased breath sounds throughout, no acute respiratory distress, no wheezes/rales/rhonchi
ABDOMEN: Mildly distended, mildly firm, without focal tenderness, right upper quadrant fullness without tenderness, no r/g, no cvat. normoactive BS. Rectal exam reveals soft brown stool that is heme positive.
NEUROLOGICAL: Alert and oriented x3, no focal neuro deficits.
SKIN: Warm and dry, normal color, skin intact. No rash.
MUSCULOSKELETAL: No C/C/E. peripheral pulses are full and equal b/l. No palpable tenderness.
PSYCH: Somewhat angry, initially quite unhappy that he was brought to the ED, marginally cooperative but with reassurance and detailed explanation he is now more cooperative.
Course
Orders/Labs/Results
Orders:
Orders
12/17/24 01:23
Electrocardiogram (*1) Urgent
Reason for Study: Abdominal Pain
12/17/24 01:24
EKG- Treatment ONCE
12/17/24 01:30
Complete Blood Count/With Diff Urgent
Comprehensive Metabolic Panel Urgent
Lactic Acid Urgent
Lipase Urgent
Comment: ADD ON
PTT Urgent
Prothrombin Time Urgent
Troponin I Urgent
12/17/24 01:46
Add On- LAB Urgent
Tests Added?: lipase
0.9% Sodium Chloride 1000 ml [Nss] 1,000 ml IV BOLUS
Pantoprazole [Protonix IV] 40 mg IV NOW STA
12/17/24 02:16
CT Abd/pelvis W Iv Cont Urgent
Comment:
Reason For Exam: abdominal pain, nausea, heme (+)stool
12/17/24 02:22
0.9% Sodium Chloride 1000 ml [Nss] 1,500 ml IV BOLUS
12/17/24 03:30
Troponin I Urgent
12/17/24 05:30
Lactic Acid Urgent
Abnormal Lab Results
12/17/24
01:30
MCH 31.9 H pg
(27.0-31.0)
Abs Immat Gran (auto) 0.1 H 10^3/uL
(0-0.05)
Absolute Neuts (auto) 6.8 H 10^3/uL
(1.4-6.5)
Absolute Lymphs (auto) 0.7 L 10^3/uL
(1.2-3.4)
Absolute Monos (auto) 0.9 H 10^3/uL
(0.1-0.6)
Immature Gran % 0.8 H %
(0-0.5)
Neutrophils % 80.6 H %
(42.2-75.2)
Lymphocytes % 7.7 L %
(20.5-51.1)
Monocytes % 10.6 H %
(1.7-9.3)
BUN 29 H mg/dl
(9-20)
Glucose 134 H mg/dl
(70-99)
Lactic Acid 2.2 H mmol/L
(0.7-2.0)
Calcium 8.2 L mg/dl
(8.4-10.2)
Total Bilirubin 1.5 H mg/dl
(0.2-1.3)
AST 94 H U/L
(17-59)
ALT 134 H U/L
(0-50)
Alkaline Phosphatase 139 H U/L
(38-126)
12/17/24 01:30
12/17/24 01:30
Vital Signs
Initial and Last Documented VS:
Initial Vital Signs
BP
136/97
12/17/24 01:20
Last Documented Vital Signs
Temp Pulse Resp BP Pulse Ox
97.5 F 95 23 136/97 95
12/17/24 01:25 12/17/24 01:30 12/17/24 01:30 12/17/24 01:25 12/17/24 01:30
MDM/Problems Addressed
Differential Diagnosis Includes:
Concern for GI bleed, colitis, peptic ulcer disease, cholecystitis, pancreatitis, bowel obstruction, ischemic bowel.
Rectal exam reveals soft brown stool that is heme positive.
Hemodynamically stable and currently denies pain but history is somewhat limited and appears somewhat unreliable.
Will check labs, EKG, initiate IV fluids, IV Protonix and plan for CT abdomen pelvis.
Chronic conditions affecting care: Asthma and Psychiatric illness
*Radiology
Radiology exam reviewed: radiology read reviewed
*Pulse Oximetry
Patient hypoxic: no
*EKG
Interpreted by ED Provider?: Yes
Interpretation: abnormal
Comparison EKG: changes noted (Unifocal PVCs are new compared to previous, heart rate has decreased from 114 to now 95, mild nonspecific lateral ST-T wave abnormalities new compared to previous)
Rate: normal
Rhythm: sinus and PVC's
[place]: left axis deviation
Interval: normal interval
QRS Pattern: left vent hypertrophy
Ischemia: non-specific ST changes
*Rfid Systems Architect Interpretation
Rate: normal
Interpretation: normal
Rhythm: sinus
*Critical Care Note
Total Time (30-74mins, 75-104mins- exclusive of procedures): Not Applicable
Update Note
Update Note:
03:45
CAT scan concerning for portal venous gas along with a few foci of mesenteric venous gas in the right upper quadrant. Source may be the cecum which demonstrates slight wall thickening, concern for possible ischemia.
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
Fluid-filled loops of small bowel as well as fluid in the colon which is nonspecific however can be seen with enteritis. There is no free fluid nor free air.
Status postcholecystectomy. Fatty liver.
Lactic acid mildly elevated at 2.2 however reassuring the patient continues to appear comfortable, continues to deny abdominal pain which is overall reassuring.
Will continue IV fluids, IV Protonix. Repeat lactic acid and troponin are pending.
Will admit to hospitalist service.
ED Attending Note
-
Portions of this chart may have been created with voice recognition software.� Occasional wrong word or��sound alike� substitutions may have occurred due to the inherent limitations of voice recognition software.
Discharge Plan
Departure
Patient Disposition: Admit
Date of Disposition: 12/17/24
Time of Disposition: 03:47
Admit to: Telemetry
Admit to doctor: Chandrakant
Presentation/result/management discussed w/ accepting MD/DO: Hospitalist
Condition: Fair
Discharge Problem:
acute RUQ abdominal pain, concern for ischemic bowel , Elevated LFTs, Elevated lactic acid level
Prescriptions:
No Action
Trelegy Ellipta 100-62.5-25 mcg Blister With Device
1 inh INHALATION DAILY
prednisone 10 mg tablet
10 mg PO DIRECTED Qty: 75 0RF
Rx Instructions:
Start with 50mg daily and taper by 10mg every 5 days
guaifenesin 600 mg Tablet Extended Release 12hr
1,200 mg PO Q12 Qty: 14 0RF
pantoprazole 40 mg Tablet,Delayed Release (Dr/Ec)
40 mg PO DAILY Qty: 30 0RF
Rx Instructions:
while on steroids
budesonide 0.5 mg/2 mL Suspension For Nebulization
0.5 mg inhalation R BID Qty: 60 0RF
ipratropium-albuterol 0.5 mg-3 mg(2.5 mg base)/3 mL Solution For Nebulization
3 ml inhalation R QID Qty: 180 0RF
cefdinir 300 mg capsule
300 mg PO BID Qty: 8 0RF
azithromycin 250 mg Tablet
500 mg PO DAILY@2200 Qty: 5 0RF
Referrals:
Linda Kwan, [Family Provider] -
Interventions
Interventions:
*Risk Screen - Suicide Last Done: 12/17/24 01:25
*General Assessment Last Done: 12/17/24 01:25
*Neglect/Abuse Screening Last Done: 12/17/24 01:25
*ED- Fall Risk Assessment Last Done: 12/17/24 01:25
*ED COVID-19 Vaccine History Last Done: 12/17/24 01:25
CR-Ylmkhz-Myocwmdolk Assessment Last Done: 12/17/24 01:25
Discharge Date and Time
Print Language: SLOVAK
[2024-12-17 01:45] LABS: % Basophils 0.1 % (0-2); % Eosinophils 0.2 % (0-6); % Immature Granulocytes 0.8 % (0-0.5); % Lymphocytes 7.7 % (20.5-51.1); % Monocytes 10.6 % (1.7-9.3); % Neutrophils 80.6 % (42.2-75.2); Absolute Immature Granulocytes 0.1 10^3/uL (0-0.05); Absolute Lymphocytes 0.7 10^3/uL (1.2-3.4); Absolute Monocytes 0.9 10^3/uL (0.1-0.6); Absolute Neutrophils 6.8 10^3/uL (1.4-6.5); Hemoglobin 17.7 g/dL (13.0-18.0); Mean Corp Hgb Conc. 34.7 g/dL (33.0-37.0); Mean Corpuscular Hgb 31.9 pg (27.0-31.0); Mean Corpuscular Volume 92.1 fL (80.0-94.0); Mean Platelet Volume 10.3 fL (7.4-10.4); Nucleated Red Blood Cells % 0 % (-); Platelet Count 162 10^3/uL (130-400); Red Blood Cell Count 5.54 10^6/uL (4.70-6.10); Red Cell Dist. Width 14.4 % (11.5-14.5); White Blood Cell Count 8.4 10^3/uL (4.8-10.8)
[2024-12-17 01:49] LABS: INR 1.03
[2024-12-17 01:50] LABS: APTT 29.5 Sec (23.4-35.0); Lactic Acid 2.2 mmol/L (0.7-2.0)
[2024-12-17 01:59] LABS: ALT (SGPT) 134 U/L (0-50); AST (SGOT) 94 U/L (17-59); Albumin 3.9 g/dl (3.5-5.0); Alkaline Phosphatase 139 U/L (38-126); Blood Urea Nitrogen 29 mg/dl (9-20); Calcium 8.2 mg/dl (8.4-10.2); Carbon Dioxide 22 mmol/L (22-30); Chloride 105 mmol/L (98-107); Estimated Creatinine Clearance 52 ml/min; Glucose 134 mg/dl (70-99); Potassium 3.9 mmol/L (3.5-5.1); Sodium 139 mmol/L (135-145); Total Bilirubin 1.5 mg/dl (0.2-1.3); Total Protein 6.7 g/dl (6.3-8.2); eGFR > 60.00
[2024-12-17 02:01] LABS: Lipase 78 U/L (23-300)
[2024-12-17 02:04] LABS: Troponin I 0.012 ng/ml
[2024-12-17] MEDS: NSS 1000 IV (02:19)
[2024-12-17] MEDS: PROTONIX IV 40 MG IV ×2 (02:19→07:10)
[2024-12-17] MEDS: NSS 1500 IV (03:37)
--- NOTE | 2024-12-17 04:09 | HPS.HSE ---
Family Physician
-
Family Physician: Linda Kwan
Chief Complaint
-
Abd Pain
History of Present Illness
Patient is an 79y M with PMH significant for asthma and allergies who presents to ED from local [place] for evaluation of abdominal pain / distention. Patient was sent from [facility] via private ambulance for evaluation of L abdominal distention by
report. There was 'concern' for rectal bleeding reported by ambulance crew. Patient essentially denies any complaints. He is aggravated that he is here. He denies abdominal pain, N/V, black or bloody stools.
Medical History
Past Medical History
Past Medical History: Reports Other
Additional Past Medical History:
Asthma / Allergies
Essential Tremor
Abnormal LFTs / Fatty Liver
Past Surgical History: Reports Other
Additional Past Surgical History:
Cholecystectomy
Social History
Tobacco: Non-smoker
Alcohol: Occasional
Drug: None
Living: [facility]
Family History
Family History: Not pertinent
Allergies / Home Medications
Allergies reflects when Allergies were last updated in [facility].
Home Medications with original date entered in [facility]
Allergy/Medication List:
Allergies
Allergy/AdvReac Type Severity Reaction Status Date / Time
Milk Containing Products Allergy Nausea / Verified 11/19/24 16:20
(Dairy) Vomiting
Home Medications
fluticasone fur. 100 mcg-umeclid 62.5 mcg-vilant 25 mcg inhalat.powder (Trelegy Ellipta) 1 inh inhalation DAILY 11/19/24
acetaminophen 325 mg tablet 650 mg PO Q6H PRN Pain / Fever 12/17/24
albuterol sulfate 90 mcg/actuation aerosol inhaler 2 puff inhalation Q4H PRN SOB 12/17/24
carboxymethylcellulose 0.5 %-glycerin 0.9 % (PF) eye drops (Refresh Tears PF) 1 drp ophthalmic (eye) TID 12/17/24
escitalopram oxalate 10 mg tablet 15 mg PO DAILY 12/17/24
fexofenadine 180 mg tablet 180 mg PO DAILY 12/17/24
fluticasone propionate 50 mcg/actuation nasal spray,suspension 2 spray intranasal DAILY 12/17/24
travoprost 0.004 % eye drops 1 drp ophthalmic (eye) QPM 12/17/24
Review of Systems
-
History Source: Patient
A 12 point ROS was completed and negative except as noted: Yes
Constitutional: Denies Fever or Chills
Respiratory: Denies Cough or Trouble Breathing
Cardiac: Denies Chest Pain or Palpitations
Abdomen/GI: Denies Abdominal Pain, Nausea, Vomiting or Diarrhea
: Denies Dysuria, Frequency or Flank Pain
Musculoskeletal: Denies Joint Pain or Edema
Neurological: Denies Dizzy or Headache
Physical Exam
Vital Signs
Vital Signs
Temp Pulse Resp BP Pulse Ox
97.5 F 95 23 136/97 95
12/17/24 01:25 12/17/24 01:30 12/17/24 01:30 12/17/24 01:25 12/17/24 01:30
Physical Exam
General: Other (79y M in no distress. Patient answers questions / follows commands - but is generally unhappy to be here.)
HEENT: Moist mucous membranes and PERRLA
Respiratory: Clear; No Wheezes, Rales or Rhonchi
Cardiac: S1/S2 and Regular Rhythm; No Murmur
GI: Other (Softly distended. No focal tenderness / rebound / guarding. Pos BS.)
Musculoskeletal: No Clubbing, No Cyanosis and Other (Trace pedal edema.)
Neuro: AO x 3
Laboratory Results
-
12/17/24 01:30
12/17/24 01:30
Laboratory Results
PT 14.0 Sec (11.4-14.6) 04/10/25 01:30
INR 1.03 12/17/24:30
APTT 29.5 Sec (23.4-35.0) 12/17/24:
Lactic Acid 2.2 mmol/L (0.7-2.0) H 12/17/24:30
Total Bilirubin 1.5 mg/dl (0.2-1.3) H 12/17/24:
AST 94 U/L (17-59) H 12/17/24:
ALT 134 U/L (0-50) H 12/17/24:
Alkaline Phosphatase 139 U/L (38-126) H 12/17/24
Troponin I 0.012 ng/ml 12/17/24
Lipase 78 U/L (23-300) 12/17/24:
Impression/Plan
-
A/P: Patient is an 79y M with PMH significant for asthma and allergies who presents to ED for evaluation of abdominal distention.
Abdominal Distention
Abnormal LFTs
Portal Venous Gas / Mesenteric Gas
Lactic Acid Elevation
Cecum Inflammation
Heme Positive Stool
- Admit for further evaluation and treatment.
- Patient denies any / all symptoms at present.
- Exam fairly benign. Afebrile, non-toxic and without abdominal tenderness.
- CT scan with multiple abnormalities however including portal venous gas / cecum inflammation / ? enteritis.
- Minimal elevation in lactate level - IVFs being given in the ED. Follow-up repeat testing.
- Exam not c/w ischemic bowel with no significant pain / tenderness / etc.
- IV Zosyn for now given gas pattern, cecum inflammation, etc.
- Stool in the ED brown and heme positive. Follow H&H (17.7 on initial labs). PPI daily.
- GI consult for further evaluation.
- Monitor for any gross bleeding, abdominal pain, N/V or other new symptoms.
Asthma / Allergies
- Stable. No wheezing, dyspnea, cough, etc.
- Continue Trelegy + albuterol PRN.
- Follow for any changes.
- Patient was on course of oral prednisone last month after asthma / pneumonia admission - ?gastritis, etc as a result leading to heme pos stools?
Glaucoma
- Stable. Continue current eye drops.
Depression
- Patient seems quite unhappy with his current living arrangement ([facility] with his who has dementia).
- Continue Lexapro.
DVT Prophylaxis: SCDs
Code Status: DNR
[2024-12-17 04:18] LABS: Troponin I < 0.012 ng/ml
[2024-12-17 06:04] LABS: Lactic Acid 1.5 mmol/L (0.7-2.0)
[2024-12-17] MEDS: ZOSYN 50 IV ×4 (06:15→23:02)
[2024-12-17] MEDS: LR 1000 IV ×3 (06:15→23:03)
[2024-12-17 06:37] LABS: Hematocrit 41.9 % (39.0-52.0); Hemoglobin 14.3 g/dL (13.0-18.0); Mean Corp Hgb Conc. 34.1 g/dL (33.0-37.0); Mean Corpuscular Hgb 32.2 pg (27.0-31.0); Mean Corpuscular Volume 94.4 fL (80.0-94.0); Mean Platelet Volume 11.2 fL (7.4-10.4); Platelet Count 129 10^3/uL (130-400); Red Blood Cell Count 4.44 10^6/uL (4.70-6.10); Red Cell Dist. Width 14.4 % (11.5-14.5); White Blood Cell Count 6.4 10^3/uL (4.8-10.8)
[2024-12-17 06:49] LABS: ALT (SGPT) 105 U/L (0-50); AST (SGOT) 78 U/L (17-59); Albumin 2.7 g/dl (3.5-5.0); Alkaline Phosphatase 94 U/L (38-126); Blood Urea Nitrogen 25 mg/dl (9-20); Calcium 6.9 mg/dl (8.4-10.2); Carbon Dioxide 23 mmol/L (22-30); Chloride 109 mmol/L (98-107); Direct Bilirubin 0.4 mg/dl (0.0-0.4); Estimated Creatinine Clearance 63 ml/min; Glucose 92 mg/dl (70-99); Potassium 3.9 mmol/L (3.5-5.1); Sodium 138 mmol/L (135-145); Total Bilirubin 1.1 mg/dl (0.2-1.3); Total Protein 5.1 g/dl (6.3-8.2); eGFR > 60.00
[2024-12-17] MEDS: CLARITIN 10 MG PO (07:09)
[2024-12-17] MEDS: LEXAPRO 15 MG PO (07:09)
[2024-12-17] MEDS: REFRESH EYE DROPS (PF) 1 DROPS OPHTH ×3 (07:10→21:18)
[2024-12-17] MEDS: NSS (PRESERVATIVE FREE) 10 ML IV (07:11)
--- NOTE | 2024-12-17 07:27 | CON.GI ---
Addendum entered and electronically signed by Iesha Tran DO 12/17/24 18:14:
Patient seen and examined independently of REAL. I agree with her note with my additions below
Markell is an 79-year-old male sent by his [facility] care custodial facility for roughly 1 week of intermittent postprandial abdominal pain, diarrhea then with some rectal bleeding at his halfway. He not been eating well. Denied any
vomiting. Currently here in the emergency room he is comfortable conversant and denies any GI issues. He does have memory issues and does not remember the last week at his halfway just that he does not like the food there.
The patient's daughter is at the bedside who gives most of the history. His is also at bedside who also has dementia.
He is a non-smoker and was recently hospitalized in November here dose time for pneumonia and asthma exacerbation.
In the emergency room he had a CT scan with a moderate amount of portal venous gas predominantly in the left hepatic lobe and some mesenteric venous gas. There was thickening of the cecum with questionable foci of pneumatosis. SMA aneurysm as well
as a small mural calcification and thrombus are present. Vascular surgery did see him and did not feel that was the cause of his cecal inflammation. He had a repeat CT angio showing some improvement in the portal venous gas.
# 1 week of GI symptoms with postprandial pain, nausea without vomiting and loose stools with eventual rectal bleeding
-- Imaging concerning for portal venous/mesenteric venous gas with questionable cecal foci of pneumatosis
-- Likely in the setting of his recent GI illness he was not taking in enough fluids and potentially some mild hypotension caused some ischemic injury
-- He is clinically comfortable with no peritoneal signs.
-- Appreciate vascular surgery and general surgery consultations with no indication for intervention
-- Patient is on antibiotics
-- Check stool studies
-- Once daily PPI
-- Clear liquids for now
Original Note:
Consultation
-
Date/Time Consultation Requested: 12/17/24529
Date/Time Consultation Performed: 12/17/24729
Requesting Provider: Mushtaq Stallings DO
Performing Provider: REAL Sheffield, Iesha Tran, DO
Reason for Consultation: abdominal pain
Medical History
Chief Complaint / HPI
Chief Complaint: abdominal pain
History of Present Illness:
Pt is a 79 yo with hx asthma, allergies, depression, tremors, fatty liver, diaphragmatic hernia, pulm nodules, prior cheri with recent admission in November with PNA and Asthma exacerbation and now returns with abdominal pain and noted rectal bleeding
in ambulance. On admission Ct completed with Moderate amount of portal venous gas. Small amount of mesenteric venous gas. There is mild bowel wall thickening involving the cecum. Tiny bubbles of gas which may be within the cecal wall. Aneurysm of
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 Mural calcification and mural thrombus.. Left-sided nephrolithiasis without hydronephrosis. On admission Lactate 2.2, bili 1.5, AST 94, ALT 134, Alk phos
139, platelet 129.
In review with patient he is limited historian but after conversation he states recent DH admission but was not sure about PNA diagnosis. He went to SNF and states he had ' bad food'. He admits to some stomach upset after eating that would
improved several hours after eating. He states after dinner last PM abdominal pain was worse rated 4/10- prompting ER eval. Per ER notes noted with rectal bleeding at SNF and EMS but pt denies. Pt does admits to dry mouth but denies current
abdominal pain, dysphagia, GERD, diarrhea, constipation, or rectal bleeding that he was aware of. Report distant hx colonoscopy did not recall details. No prior EGD.
Past Medical History
Past Medical History: Asthma, Psychiatric (depression ) and Other (allergies, tremors, fatty liver, diaphragmatic hernia , pulm nodules)
Past Surgical History: Cholecystectomy
Social History
Tobacco: Non-Smoker
Alcohol: Occasional (social )
Drug: None
Personal:
Living: Retirement (current SNF but prior with with dementia )
Employment: Retired
Family History
Family History: Other (denies family hx colon CA or polyps)
Allergies / Home Medications
Allergy/AdvReac Type Severity Reaction Status Date / Time
Milk Containing Products Allergy Nausea / Verified 11/19/24 16:20
(Dairy) Vomiting
�Medication �Instructions �Recorded
fluticasone fur. 100 mcg-umeclid 1 inh inhalation DAILY 11/19/24
62.5 mcg-vilant 25 mcg
inhalat.powder (Trelegy Ellipta)
acetaminophen 325 mg tablet 650 mg PO Q6H PRN Pain / Fever 12/17/24
albuterol sulfate 90 mcg/actuation 2 puff inhalation Q4H PRN SOB 12/17/24
aerosol inhaler
carboxymethylcellulose 0.5 1 drp ophthalmic (eye) TID 12/17/24
%-glycerin 0.9 % (PF) eye drops
(Refresh Tears PF)
escitalopram oxalate 10 mg tablet 15 mg PO DAILY 12/17/24
fexofenadine 180 mg tablet 180 mg PO DAILY 12/17/24
fluticasone propionate 50 2 spray intranasal DAILY 12/17/24
mcg/actuation nasal
spray,suspension
travoprost 0.004 % eye drops 1 drp ophthalmic (eye) QPM 12/17/24
Review of Systems
-
Unable to obtain full review of systems at this time due to: Other (some forgetfulness in exam)
History Source: Patient
Constitutional: Reports No Symptoms
EENT: Reports No Symptoms
Respiratory: Reports Trouble Breathing (at times with hx asthma )
Abdomen/GI: Reports Abdominal Pain and Other (dry mouth )
: Reports No Symptoms
Musculoskeletal: Reports No Symptoms
Skin: Reports No Symptoms
Neurological: Reports Weakness
Endocrine: Reports No Symptoms
Hematologic/Lymphatic: Reports Bleeding
Vital Signs
Temp Pulse Resp BP Pulse Ox
97.5 F 95 23 136/97 95
12/17/24 01:25 12/17/24 01:30 12/17/24 01:30 12/17/24 01:25 12/17/24 01:30
Physical Exam
Exam
General: Well Developed, Well Nourished and No Apparent Distress
HEENT: Normocephalic and Anicteric
Respiratory: Clear
Cardiac: Regular Rhythm
GI: Soft, Non Tender and Distended (minimal )
Musculoskeletal: No Clubbing and No Cyanosis
Skin: Warm and Dry
Neuro: Awake, Alert and Other (forgetful at times )
Psych: Calm
Results
WBC 6.4 10^3/uL (4.8-10.8) 12/17/24 05:44
Hgb 14.3 g/dL (13.0-18.0) 12/17/24 05:44
Hct 41.9 % (39.0-52.0) 12/17/24 05:44
MCV 94.4 fL (80.0-94.0) H 12/17/24 05:44
Plt Count 129 10^3/uL (130-400) L D 12/17/24 05:44
Absolute Neuts (auto) 6.8 10^3/uL (1.4-6.5) H 12/17/24 01:30
PT 14.0 Sec (11.4-14.6) 12/17/24 01:30
INR 1.03 12/17/24 01:30
APTT 29.5 Sec (23.4-35.0) 12/17/24 01:30
Sodium 138 mmol/L (135-145) 12/17/24 05:44
Potassium 3.9 mmol/L (3.5-5.1) 12/17/24 05:44
Chloride 109 mmol/L (98-107) H 12/17/24 05:44
Carbon Dioxide 23 mmol/L (22-30) 12/17/24 05:44
BUN 25 mg/dl (9-20) H 12/17/24 05:44
Creatinine 0.9 mg/dL (0.7-1.3) 12/17/24 05:44
Calcium 6.9 mg/dl (8.4-10.2) L* 12/17/24 05:44
Total Bilirubin 1.1 mg/dl (0.2-1.3) 12/17/24 05:44
AST 78 U/L (17-59) H 12/17/24 05:44
ALT 105 U/L (0-50) H 12/17/24 05:44
Alkaline Phosphatase 94 U/L (38-126) 12/17/24 05:44
Lipase 78 U/L (23-300) 12/17/24 01:30
Diagnostic Image Results:
12/17/24 CT Abd/pelvis W Iv Cont
1. Moderate amount of portal venous gas. Small amount of mesenteric venous gas as detailed above.
2. There is mild bowel wall thickening involving the cecum. Tiny bubbles of gas which may be within the cecal wall.
3. 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 Mural calcification and mural thrombus.
4. Left-sided nephrolithiasis without hydronephrosis.
11/22/24 CT Chest PE Study
No evidence of central pulmonary embolism.
Minimally improved right lower lobe consolidation and moderately improved opacification/consolidation in the lingula and left lower lobe in comparison to recent prior study suggesting resolving atelectasis and/or pneumonia.
Areas of bronchiectasis again seen and some areas of bronchial wall thickening slightly improved.
Essentially stable small right middle lobe and lingular pulmonary nodules.
Additional stable nonurgent findings in comparison to recent prior study, as detailed above.
Prior GI Procedures:
EGD:
none
Colonoscopy: years ago did not recall details
Assessment / Plan
-
Pt is a 79 yo with hx asthma, allergies, depression, tremors, fatty liver, diaphragmatic hernia, pulm nodules, prior cheri with recent admission in November with PNA and Asthma exacerbation and now returns with abdominal pain and noted rectal bleeding
in ambulance. In review with patient some post prandial pain leading up to admission from ' bad food'. On admission Ct completed with Moderate amount of portal venous gas. Small amount of mesenteric venous gas. There is mild bowel wall thickening
involving the cecum. Tiny bubbles of gas which may be within the cecal wall. 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 Mural calcification and mural thrombus.. Left-sided nephrolithiasis
without hydronephrosis. On admission Lactate 2.2, bili 1.5, AST 94, ALT 134, Alk phos 139, platelet 129.
-abdominal pain/rectal bleeding
-? post prandial pain prior to admission
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
measuring 1.4 cm in greatest orthogonal dimension. Mural calcification and mural thrombus.
- Left-sided nephrolithiasis without hydronephrosis per CT
-recent admit with PNA/asthma exacerbation
-increased LFT's
-mild thrombocytopenia
other med problems:
-depression
-fatty liver
-tremors
-diaphragmatic hernia
-pulm nodules
-prior cheri
PLAN:
Etiology of symptoms with ? post prandial pain with worsening pain the bleeding prior to admission unclear -- noted abnormal CT on admission with multiple finding with raciel vein, mesenteric vein, cecal thickening with air bubble in cecal wall and
SMA aneurysm with calcification/thrombus--
will review with Dr. Tran and Dr. Cruz - for general surg/colorectal vs vascular eval
clinically patient feels well, no current abdominal pain, no guarding, WBC normal and-- BP slightly low this am but not stable on admission
cont NPO/IVF
cont abx
no rectal bleeding since admission cont to follow
hbg some drop 17.1 then 14.3 with hydration
some LFT elevation but some chronic elevation on prior labs
-
-
Thank you for consultation and allowing me to participate in the patient's care. Please call the missionary coordinator GI physician during the after hours with any questions or concerns.
[2024-12-17] MEDS: SYMBICORT 160/4.5 MCG INHALER 2 PUFF INH ×2 (08:07→19:16)
[2024-12-17] MEDS: SPIRIVA RESPIMAT 2.5 MCG 2 PUFF INH (08:07)
--- NOTE | 2024-12-17 08:52 | W.PN.HOSP.TC ---
Today's Communication/Plan
-
IV fluids and IV antibiotics. Surgery and GI eval.
Assessment / Plan
Assessment / Plan
Physical exam:
General: Acute on chronically ill
HEENT: Normocephalic, Atraumatic and Moist Mucous Membranes
Respiratory: Clear to Auscultation; Negative Wheezes, Rales or Rhonchi
Cardiac: Regular Rhythm and S1/S2
GI: Soft, Nontender and Distended
Musculoskeletal: No Clubbing, No Cyanosis. Bilateral lower extremity edema
Neuro: Awake, Alert and Disoriented, no gross neurological deficit
Psych: Anxious, limited judgment insight
A/P:
Abdominal pain:
Unclear etiology
Abnormal CT of the abdomen
Appreciated GI consult-discussed with GI today
GI will get surgery and vascular surgery on board
Discussed with vascular surgery today
Plan to do CTA of the abdomen pelvis
Continue empiric IV antibiotics, Zosyn
WBC 8.4-->6.4
Hemoglobin 17.7--> 14.3
SMA aneurysm with mural thrombus:
Vascular surgery consult
Lower GI bleed:
Keep n.p.o.
Continue IV fluid
Monitor hemoglobin
GI consult appreciated
Hypocalcemia:
IV calcium gluconate today
Trend in a.m.
Hypotension:
Continue IV fluid
Monitor blood pressure closely
Elevated lactate:
Lactic acid 2.2--> 1.5 this morning
Elevated LFTs:
Continue to trend LFTs
Thrombocytopenia:
Monitor trend
Hypoalbuminemia:
Noted
Asthma:
Respiratory status stable
Continue to monitor
Depression:
Antidepressants
DVT prophylaxis:
SCDs
CODE STATUS:
DNR
Anticipated Discharge: > 48 hours
Subjective/Interval History
-
Date of Service: December 17, 2024
Patient alert but disoriented. Denies abdominal pain nausea or vomiting currently.
Objective Data
-
Labs:
Laboratory Results
12/17/24 12/17/24
01:30 05:44
WBC 8.4 6.4
Hgb 17.7 14.3
Hct 51.0 41.9
Plt Count 162 129 L D
PT 14.0
INR 1.03
APTT 29.5
Sodium 139 138
Potassium 3.9 3.9
Chloride 105 109 H
Carbon Dioxide 22 23
BUN 29 H 25 H
Creatinine 1.1 0.9
Glucose 134 H 92
Calcium 8.2 L 6.9 L*
Total Bilirubin 1.5 H 1.1
AST 94 H 78 H
ALT 134 H 105 H
Alkaline Phosphatase 139 H 94
Vital Signs:
Vital Signs
Temp Pulse Resp BP Pulse Ox
98 F 89 16 91/55 96
12/17/24 07:33 12/17/24 08:14 12/17/24 08:14 12/17/24 07:33 12/17/24 08:14
I&O
12/16/24 12/17/24 12/18/24
06:59 06:59 06:59
Output Total 400 / 400
Balance -400 / -400
[2024-12-17] MEDS: CALCIUM GLUCONATE 100 IV (09:47)
--- NOTE | 2024-12-17 09:49 | CON.VAS ---
Addendum entered and electronically signed by David Abarca MD 12/17/24 13:59:
Seen and evaluated in the emergency room with [employer]. Agree with findings as noted below. 79-year-old male with history of asthma, dementia (resides in memory skilled nursing with his ). He presents with nausea/fever/lethargy and possible abdominal
discomfort, but what was most concerning was bleeding per rectum. His daughter relayed much of this history and she was in [place] at the time but is now here at his bedside. Patient denies any prior vascular interventions. Denies any significant
coronary disease. No history of tobacco use. No prior history of chronic postprandial pain. When I saw him now in the emergency room he notes that he is quite comfortable and his pain is mostly resolved.
On exam/he is awake and alert. Head is normocephalic and atraumatic. He is in no acute distress. Breathing is unlabored. Abdomen is soft, mild distended. He is nontender throughout. Lower extremity with 2+ femoral pulses palpable bilaterally.
Feet are warm and pink bilaterally.
CT scan reviewed. CT angiogram reviewed as well.
Plan/ SMA small aneurysm with mural thrombus. The mural thrombus does not result in any significant stenosis in the flow lumen. Nor is there any obvious distal branch occlusion suggesting embolic source from the aneurysm. Therefore, would
recommend continue conservative management of the aneurysm for now. He can follow-up in the office for surveillance. He is 79 years old and with significant other medical comorbidities/inactivity decompensation/dementia. Therefore would not
pursue elective revascularization of the SMA at this point. (In the absence of SMA occlusion or aneurysmal rupture, or rapid growth). Would recommend general surgery evaluation for findings of pneumatosis possibly and portal venous gas on CT.
Original Note:
Consultation
Consultation Request
Date/Time Consultation Performed: 12/17/24 17
Requesting Provider: Airam Tran MD
Performing Provider: Blanca Frank, [employer]-C for David Abarca MD
Reason for Consultation: ABD pain with SMA aneurysm
Medical History
-
Chief Complaint: ABD pain
History of Present Illness:
This is a 79 year old male with significant medical history of asthma, allergies, depression, tremors, fatty liver, diaphragmatic hernia, and pulmonary nodules who presented to ED early AM hours today from the [place] [facility] where he resides due to
reports of abdominal pain and rectal bleeding. Patient currently is awake and oriented to self and place he can recall that he is at [facility] but cannot recall events that brought him to the ED and believes he has been here for a week
with a wrongfully diagnosed pneumonia. Of note he was admitted from 11/20/24-11/23/24 for asthma exacerbation and pneumonia, because patient is confused HPI is contributed by chart review. He was brought to ED via ambulance for reports of abdominal
pain, rectal bleeding, and abdominal distention. He had a CT ABD/pelvis with contrast overnight which demonstrated an aneurysm of the proximal superior mesenteric artery, measuring 1.4 cm in greatest orthogonal dimension with calcification and mural
thrombus, which prompted vascular consultation. Currently he is resting comfortably in bed without complaints, he denies abdominal pain, nausea, or vomiting. He denies experiencing ABD pain, nausea, vomiting, food fearing, or unintentional weight
loss prior to admission. He does indicate that his stomach hurt last night after dinner but he claims he at dinner here at the hospital and that the 'bad hospital food is what hurt my stomach.' He denies prior vascular history or seeing a vascular
surgeon.
Past Medical History
Past Medical History: Psychiatric (depression ) and Other (tremors, fatty liver, diaphragmatic hernia , pulmonary nodules, asthma )
Past Surgical History: Cholecystectomy
Social History
Tobacco: Non-Smoker
Alcohol: None
Drug: None
Personal:
Living: [facility]
Allergies / Home Medications
Allergy/AdvReac Type Severity Reaction Status Date / Time
Milk Containing Products Allergy Nausea / Verified 11/19/24 16:20
(Dairy) Vomiting
�Medication �Instructions �Recorded �Confirmed �Type
fluticasone fur. 100 mcg-umeclid 1 inh inhalation R DAILY 11/19/24 12/17/24 History
62.5 mcg-vilant 25 mcg
inhalat.powder (Trelegy Ellipta)
acetaminophen 325 mg tablet 650 mg PO Q6HPRN PRN mild Pain / 12/17/24 12/17/24 History
Fever
albuterol sulfate 90 mcg/actuation 2 puff inhalation R Q4HPRN PRN SOB 12/17/24 12/17/24 History
aerosol inhaler
escitalopram oxalate 10 mg tablet 15 mg PO HS 12/17/24 12/17/24 History
fexofenadine 180 mg tablet 180 mg PO DAILY 12/17/24 12/17/24 History
fluticasone propionate 50 2 spray intranasal DAILY 12/17/24 12/17/24 History
mcg/actuation nasal
spray,suspension
guaifenesin 100 mg/5 mL oral liquid 200 mg PO Q4HPRN PRN cough 12/17/24 12/17/24 History
polyvinyl alcohol-povidone (PF) 1 drp BOTH EYES TID 12/17/24 12/17/24 History
1.4 %-0.6 % eye drops in a
dropperette (Refresh Classic (PF))
travoprost 0.004 % eye drops 1 drp BOTH EYES HS 12/17/24 12/17/24 History
Review of Systems
-
Unable to obtain full review of systems at this time due to: Dementia
History Source: Patient
Constitutional: Denies Fever, Weight Loss or Chills
EENT: Reports No Symptoms
Respiratory: Reports No Symptoms
Cardiac: Reports No Symptoms
Vascular: Denies Leg Pain / Claudication
Abdomen/GI: Reports Abdominal Pain; Denies Nausea, Vomiting, Diarrhea or Anorexia
: Reports No Symptoms
Musculoskeletal: Reports No Symptoms
Skin: Reports No Symptoms
Neurological: Reports No Symptoms
Endocrine: Reports No Symptoms
Physical Exam
Vital Signs
Temp Pulse Resp BP Pulse Ox
98 F 89 16 91/55 96
12/17/24 07:33 12/17/24 08:14 12/17/24 08:14 12/17/24 07:33 12/17/24 08:14
Lab Results
12/17/24 05:44
12/17/24 05:44
Troponin I < 0.012 ng/ml 12/17/24 03:41
Physical Exam
General: No Apparent Distress
HEENT: Normocephalic, Anicteric and Atraumatic
Respiratory: Non Labored Respirations
Cardiac: Negative JVD
GI: Non Tender and Distended (mildly distened)
Musculoskeletal: Edema (+1 pitting edema BL LE)
Skin: Warm and Dry
Neuro: AO x 3
Pulses: Bilateral Femoral: +1, Bilateral Dorsalis Pedis: Doppler and Bilateral Posterior Tibial: Doppler
Assessment / Plan
-
Assessment: 79 year old male admitted for abdominal pain and bloody stools with incidental finding of aneurysm of the proximal superior mesenteric artery, measuring 1.4 cm in greatest orthogonal dimension
Plan:
Current CT ABD/pelvis with IV dye study does bit provide optimal visualization of SMA aneurysmal mural thrombus to determine if it is critically flow limiting, reccomend CT angio of ABD/pelvis with fine cuts in order to fully assess aneurysm and
thrombus. Final surgical plan pending CT angio results.
Reviewed HPI, PE, and plan with vascular attending Dr. David Abarca.
Data Reviewed
-
CT Scan: Report Reviewed by me and Discussed with Physician
Labs: Labs Reviewed by me, Discussed with Physician and Discussed with Patient
--- NOTE | 2024-12-17 11:27 | CON.GS ---
Addendum entered and electronically signed by Srinivas Jones MD 12/17/24 17:22:
Patient seen and examined with vice president & general manager [employer] [place] earlier this a.m. Patient also seen in follow-up this evening for second evaluation. Agree with documented consultation note as per below with additions noted here. Patient's daughter and are
at bedside for both evaluations as well.
Patient is somewhat a limited historian. History also obtained through interview with the patient's daughter.
79-year-old male recent moved to [facility] from previously living in [place] due to decline in his 's dementia requiring increased level of care at a memory care unit/correction facility. His daughter lives in the area prompting the
move. He was recently hospitalized in November for pneumonia and asthma exacerbation.
Daughter states that particularly over the last 4 to 5 days he has been having intermittent postprandial abdominal pain. Anorexia but no nausea or vomiting. He specifically complains that all the food is bad since moving to the area and is
attributing his symptoms to a poor diet. He was transferred from EMS due to concern of rectal bleeding at the skilled nursing.
This afternoon/evening he is again resting comfortably in his hospital bed. He specifically denies any abdominal pain and has not required any narcotic use today. Denies nausea. Requesting food.
Past medical history notable for asthma, essential tremor, fatty liver, depression, glaucoma, pulmonary nodules, recent failure to thrive
Past surgical history notable for open cholecystectomy
AF VSS -blood pressure low normal
NAD AAOx3
ABD: Soft, protuberant but softly distended. No tenderness elicited on palpation. No rebound, no guarding. No appreciated hernias or masses.
CT abdomen pelvis from early a.m. with moderate amount of portal venous gas predominantly within the left hepatic lobe and some mesenteric venous gas. Some mild thickening around the cecum and possible pneumatosis but not well-visualized. No
obstructive signs or symptoms. 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
CT abdomen pelvis angiography and follow-up at 12:46 PM shows significant improvement in previous portal venous gas. On these views I think the pneumatosis is more reflective of associated mesenteric venous gas adjacent to the cecum. No
progressive thickening or inflammatory changes around the cecum. 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
Assessment/plan: 79-year-old male presenting with portal venous/mesenteric venous gas, possible cecal pneumatosis and inflammatory changes.
No radiographic signs of advanced or irreversible bowel ischemia. This may be due to an overall low flow state as his symptoms have improved with bowel rest and IV fluids since admission this morning. There is also significant radiographic
improvement in the degree of portal venous gas between the 2 studies. No lactic acidosis. No peritoneal signs on examination.
Discussed with patient and his family at bedside there are no strong indications to pursue urgent surgical intervention.
First-line therapy for suspected reversible bowel ischemia is IV fluid resuscitation and bowel rest -okay to have clear liquids for comfort
Agree with empiric antibiotic coverage due to risk of bacterial translocation and the possibility of pneumatosis.
Will follow.
Original Note:
Medical History
-
Chief Complaint: Abdominal pain
History of Present Illness:
79-year-old male with past medical history of asthma, essential tremor, fatty liver, glaucoma, depression, diaphragmatic hernia, pulmonary nodules with recent admission of pneumonia and asthma exacerbation from November 20 to presented to the ED via
EMS for abdominal pain and distention. EMS stated there was report of concern of rectal bleeding at skilled nursing. Patient stated that he noticed generalized abdominal pain that occurred after eating over the last 4 to 5 days. Stated that at worse
pain was 4 out of 10 and he noticed the pain over the last 4 to 5 days especially after eating. He believes it is due to the poor food he gets at the skilled nursing he recently moved to. Of note, patient is adamant that he is okay and wants to
leave. His last full bowel movement was yesterday, he denies any blood in stool, nausea, vomiting, diarrhea. He denies any smoking history, history of abnormal heart rhythm, prior clots, prior CVA, [place], peripheral artery disease. He denies any
unintentional weight loss or fevers recently.
On admission AFVSS, bili 1.5, AST 94, ALT 134, Alk phos 139, lipase 78, platelet 129, LA 2.2, Hg 17.7, heme (+) stool. CT noted moderate amount of portal venous gas, small amount of mesenteric venous gas, mild bowel wall thickening involving cecum
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 Patient was put n.p.o., given 2.5
L of fluid so far, started on Zosyn, PPI. GI, vascular, surgery consulted.
Past Medical History
Past Medical History: Other (Asthma, essential tremor, fatty liver, glaucoma, depression, diaphragmatic hernia, pulmonary nodules)
Past Surgical History: Other (Cholecystectomy)
Social History
Tobacco: Non-Smoker
Alcohol: Occasional
Drug: None
Personal:
Living: [facility]
Employment: Retired
Allergies / Home Medications
Allergy/AdvReac Type Severity Reaction Status Date / Time
Milk Containing Products Allergy Nausea / Verified 11/19/24 16:20
(Dairy) Vomiting
�Medication �Instructions �Recorded �Confirmed �Type
fluticasone fur. 100 mcg-umeclid 1 inh inhalation R DAILY 11/19/24 12/17/24 History
62.5 mcg-vilant 25 mcg
inhalat.powder (Trelegy Ellipta)
acetaminophen 325 mg tablet 650 mg PO Q6HPRN PRN mild Pain / 12/17/24 12/17/24 History
Fever
albuterol sulfate 90 mcg/actuation 2 puff inhalation R Q4HPRN PRN SOB 12/17/24 12/17/24 History
aerosol inhaler
escitalopram oxalate 10 mg tablet 15 mg PO HS 12/17/24 12/17/24 History
fexofenadine 180 mg tablet 180 mg PO DAILY 12/17/24 12/17/24 History
fluticasone propionate 50 2 spray intranasal DAILY 12/17/24 12/17/24 History
mcg/actuation nasal
spray,suspension
guaifenesin 100 mg/5 mL oral liquid 200 mg PO Q4HPRN PRN cough 12/17/24 12/17/24 History
polyvinyl alcohol-povidone (PF) 1 drp BOTH EYES TID 12/17/24 12/17/24 History
1.4 %-0.6 % eye drops in a
dropperette (Refresh Classic (PF))
travoprost 0.004 % eye drops 1 drp BOTH EYES HS 12/17/24 12/17/24 History
Review of Systems
-
History Source: Patient
Constitutional: No Symptoms
EENT: No Symptoms
Respiratory: No Symptoms
Cardiac: No Symptoms
Abdomen/GI: No Symptoms
Neurological: No Symptoms
A 10 point review of systems was completed, and was negative except as per HPI.
Physical Exam
Vital Signs
Temp Pulse Resp BP Pulse Ox
98 F 89 16 91/55 96
12/17/24 07:33 12/17/24 08:14 12/17/24 08:14 12/17/24 07:33 12/17/24 08:14
12/16/24 12/17/24 12/18/24
06:59 06:59 06:59
Actual Weight 75.8 kg
Body Mass Index (BMI) 25.4
Lab Results
12/17/24 05:44
12/17/24 05:44
WBC 6.4 10^3/uL (4.8-10.8) 12/17/24 05:44
Hgb 14.3 g/dL (13.0-18.0) 12/17/24 05:44
Hct 41.9 % (39.0-52.0) 12/17/24 05:44
Plt Count 129 10^3/uL (130-400) L D 12/17/24 05:44
Abs Immat Gran (auto) 0.1 10^3/uL (0-0.05) H 12/17/24 01:30
Neutrophils % 80.6 % (42.2-75.2) H 12/17/24 01:30
Physical Exam
General: Well Developed, Well Nourished, No Apparent Distress and Comfortable
GI: Soft, Non Tender, Non Distended and Normal Bowel Sounds
Assessment / Plan
-
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
AFVSS
Abdomen nontender, normal bowel sounds, no guarding or rigidity
Patient is currently not complaining of any abdominal pain, nausea, vomiting, diarrhea, constipation. Last bowel movement was yesterday. He is aggravated that he has to stay in the hospital, but overall appears comfortable. Hemoglobin did drop
from 17.7-14.3. Could be dilutional due to fluids as patient denies any blood per rectum. LA was 2.2 on admission now down trended to 1.5. No signs of infection on labs. BP noted to be low this a.m., however stable on admission.
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
# Hemoccult positive stool
- N.p.o.
- Status post 2.5 L fluids in ED - cont fluids
- PPI
- CT angio of abdomen and pelvis with fine cuts per vascular pending
- Monitor hemoglobin
- Serial ab exams
- Monitor for changes in vitals
- No clear signs of irreversible bowel ischemia - cont to closely monitor
[2024-12-18] MEDS: ZOSYN 50 IV ×2 (04:59→12:36)
[2024-12-18 06:00] VITALS: BMI 25.6
[2024-12-18 06:03] LABS: Hemoglobin 14.1 g/dL (13.0-18.0); Mean Corp Hgb Conc. 34.4 g/dL (33.0-37.0); Mean Corpuscular Hgb 31.9 pg (27.0-31.0); Mean Corpuscular Volume 92.8 fL (80.0-94.0); Mean Platelet Volume 10.3 fL (7.4-10.4); Platelet Count 118 10^3/uL (130-400); Red Blood Cell Count 4.42 10^6/uL (4.70-6.10); Red Cell Dist. Width 14.4 % (11.5-14.5); White Blood Cell Count 4.6 10^3/uL (4.8-10.8)
[2024-12-18 06:42] LABS: ALT (SGPT) 98 U/L (0-50); AST (SGOT) 75 U/L (17-59); Albumin 2.4 g/dl (3.5-5.0); Alkaline Phosphatase 88 U/L (38-126); Blood Urea Nitrogen 15 mg/dl (9-20); Calcium 7.5 mg/dl (8.4-10.2); Carbon Dioxide 22 mmol/L (22-30); Chloride 109 mmol/L (98-107); Estimated Creatinine Clearance 63 ml/min; Glucose 71 mg/dl (70-99); Potassium 3.4 mmol/L (3.5-5.1); Sodium 138 mmol/L (135-145); Total Protein 4.8 g/dl (6.3-8.2); eGFR > 60.00
--- NOTE | 2024-12-18 07:30 | W.PN.GS2 ---
Addendum entered and electronically signed by Elvis Francis MD 12/18/24 10:39:
I saw and examined the patient independently.
The resident's documentation was reviewed and I agree with the note, assessment and plan except where noted below.
Comment: 79-year-old male with abdominal pain and bloody stools found to have a nonocclusive proximal SMA aneurysm and mural thrombus.
Tolerated clears, can advance to regular diet/p.o. challenge. If he can tolerate this without to worsening abdominal pain he is cleared from a general surgery perspective for discharge.
H&H stable, anticoagulation per primary/vascular team.
General surgery will continue to follow peripherally, please call with any questions or concerns.
Original Note:
Today's Communication / Plan
-
Regular diet and observe how he tolerates
intermission coordinator anticoagulation management per vascular team
Assessment / Plan
-
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
AFVSS
Abdomen distended and tympanic, nontender, normal bowel sounds, no guarding or rigidity
Overnight pt was stable. Patient is currently not complaining of any abdominal pain, nausea, vomiting, diarrhea, constipation. Last bowel movement was 12/16. Thrombus does not appear to be occluding blood flow on CT angio therefore conservative
management is appropriate. Hemoglobin was stable overnight and no other signs of an acute bleed.
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
# Possible pneumatosis intestinalis within cecum
# Hemoccult positive stool
- N.p.o. -> Regular diet and observe how he tolerates intake
- Cont PPI
- Serial ab exams
- Monitor for changes in vitals
- No clear signs of irreversible bowel ischemia - cont to closely monitor
- Will likely need [facility] anti-coagulation - management per vascular team
Subjective Data
-
Date of Service: December 18, 2024
Feels well. Wants to go home.
Objective Data
-
Intake and Output
12/17/24 12/18/24 12/19/24
06:59 06:59 06:59
Intake Total 1900 / 1900
Output Total 400 / 400 550 / 550
Balance -400 / -400 1350 / 1350
Intake:
Oral fluids 480 / 480
IV fluids (Total) 1320 / 1320
IV piggybacks 100 / 100
Output:
Urine, Voided 400 / 400 550 / 550
Other:
How many times incontinent 1
How many times incontinent 1
SATURATED amount urine
Vital Signs
Temp Pulse Resp BP Pulse Ox
97.9 F 81 16 120/70 95
12/17/24 23:18 12/17/24 23:18 12/17/24 23:18 12/17/24 23:18 12/17/24 23:18
Lab Results
12/18/24 05:45
12/18/24 05:45
Calcium 7.5 mg/dl (8.4-10.2) L 12/18/24 05:45
Total Bilirubin 1.0 mg/dl (0.2-1.3) 12/18/24 05:45
Direct Bilirubin 0.4 mg/dl (0.0-0.4) 12/17/24 05:44
AST 75 U/L (17-59) H 12/18/24 05:45
ALT 98 U/L (0-50) H 12/18/24 05:45
Alkaline Phosphatase 88 U/L (38-126) 12/18/24 05:45
Total Protein 4.8 g/dl (6.3-8.2) L 12/18/24 05:45
Albumin 2.4 g/dl (3.5-5.0) L 12/18/24 05:45
Physical Exam
-
AAOx3
Distended, tympanic, however non tender, no guarding or rigidity
Normal bowel sounds in all 4 quadrants
[2024-12-18 07:50] VITALS: BP 130/83
[2024-12-18] MEDS: REFRESH EYE DROPS (PF) 1 DROPS OPHTH (08:04)
[2024-12-18] MEDS: LEXAPRO 15 MG PO (08:04)
[2024-12-18] MEDS: CLARITIN 10 MG PO (08:04)
[2024-12-18] MEDS: PROTONIX IV 40 MG IV (08:05)
[2024-12-18] MEDS: NSS (PRESERVATIVE FREE) 10 ML IV (08:05)
[2024-12-18] MEDS: SPIRIVA RESPIMAT 2.5 MCG 2 PUFF INH (08:07)
[2024-12-18] MEDS: SYMBICORT 160/4.5 MCG INHALER 2 PUFF INH (08:07)
--- NOTE | 2024-12-18 08:47 | W.PN.HOSP.TC ---
Addendum entered and electronically signed by Frankie Cruz MD 12/18/24 12:55:
Tried to reach out to daughter twice but unavailable. Discussed with son-in-law.
Addendum entered and electronically signed by Frankie Cruz MD 12/18/24 12:54:
Patient has been cleared by GI and surgery. Stop IV fluids and IV antibiotics. Tolerating regular diet. Plan to discharge today.
Original Note:
Today's Communication/Plan
-
Antibiotics, IV fluids, advance diet as tolerated.
Assessment / Plan
Assessment / Plan
Physical exam:
General: Acute on chronically ill
HEENT: Normocephalic, Atraumatic and Moist Mucous Membranes
Respiratory: Clear to Auscultation; Negative Wheezes, Rales or Rhonchi
Cardiac: Regular Rhythm and S1/S2
GI: Soft, Nontender and Distended
Musculoskeletal: No Clubbing, No Cyanosis. Bilateral lower extremity edema
Neuro: Awake, Alert and Disoriented, no gross neurological deficit
Psych: Anxious, limited judgment insight
A/P:
Abdominal pain and portal venous/mesenteric venous gas, cecal pneumatosis, possible reversible bowel ischemia:
Unclear etiology but improving overall
Seen abnormal CT of the abdomen and repeated CTA of the abdomen and pelvis and shows radiographic improvement
No need for immediate surgical intervention per surgery
On IV fluids and decrease rate and possible stop later today.
On IV antibiotics
Appreciated GI, surgery, and vascular surgery consults.
WBC 8.4-->4.6
Hemoglobin 17.7--> 14.1
SMA aneurysm with mural thrombus:
Vascular surgery consult appreciated
CTA done and no surgical intervention required
Follow-up as outpatient with vascular surgery
Acute diarrhea:
Check stool studies
Lower GI bleed:
Tolerating clear liquid diet and advance as tolerated
Continue IV fluid
Monitor hemoglobin
GI consult appreciated
Hypocalcemia:
IV calcium gluconate today
Trend in a.m.
Hypotension:
Continue IV fluid
Monitor blood pressure closely
Elevated lactate:
Lactic acid 2.2--> 1.5
Elevated LFTs:
Continue to trend LFTs
Thrombocytopenia:
Monitor trend
Hypoalbuminemia:
Noted
Asthma:
Respiratory status stable
Continue to monitor
Depression:
Antidepressants
DVT prophylaxis:
SCDs
CODE STATUS:
DNR
Anticipated Discharge: 24 - 48 hours
Subjective/Interval History
-
Date of Service: December 18, 2024
No abdominal pain nausea vomiting. No chest pain or shortness of breath.
Objective Data
-
Labs:
Laboratory Results
12/18/24
05:45
WBC 4.6 L
Hgb 14.1
Hct 41.0
Plt Count 118 L
Sodium 138
Potassium 3.4 L
Chloride 109 H
Carbon Dioxide 22
BUN 15
Creatinine 0.9
Glucose 71
Calcium 7.5 L
Total Bilirubin 1.0
AST 75 H
ALT 98 H
Alkaline Phosphatase 88
Vital Signs:
Vital Signs
Temp Pulse Resp BP Pulse Ox
97.2 F 85 18 130/83 95
12/18/24 07:50 12/18/24 07:50 12/18/24 07:50 12/18/24 07:50 12/18/24 07:50
I&O
12/17/24 12/18/24 12/19/24
06:59 06:59 06:59
Intake Total 1900 / 1900
Output Total 400 / 400 550 / 550
Balance -400 / -400 1350 / 1350
[2024-12-18] MEDS: CALCIUM GLUCONATE 100 IV (10:16)
[2024-12-18] MEDS: KCL 40 MEQ PO (10:16)
--- NOTE | 2024-12-18 12:44 | W.PN.GI.CBS2 ---
Today's Communication / Plan
-
Tolerating regular diet
Agree with surgery ok for hosp d/c from GI perspective
Started miralax daily to prevent constipation
May benefit from repeat CTAP in 4-8 wks. Can FU with GI. D/c paperwork updated
GI will sign off please call for ?
Assessment / Plan
-
Pt is a 79 yo with hx asthma, allergies, depression, tremors, fatty liver, diaphragmatic hernia, pulm nodules, prior cheri with recent admission in November with PNA and Asthma exacerbation and now returns with abdominal pain and noted rectal bleeding
in ambulance. In review with patient some post prandial pain leading up to admission from ' bad food'. On admission Ct completed with Moderate amount of portal venous gas. Small amount of mesenteric venous gas. There is mild bowel wall thickening
involving the cecum. Tiny bubbles of gas which may be within the cecal wall. 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 Mural calcification and mural thrombus.. Left-sided nephrolithiasis
without hydronephrosis. On admission Lactate 2.2, bili 1.5, AST 94, ALT 134, Alk phos 139, platelet 129.
Impression
-pneumatosis and mesenteric venous gas
-abdominal pain/rectal bleeding
-? post prandial pain prior to admission
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
measuring 1.4 cm in greatest orthogonal dimension. Mural calcification and mural thrombus.
- Left-sided nephrolithiasis without hydronephrosis per CT
-recent admit with PNA/asthma exacerbation
-increased LFT's
-mild thrombocytopenia
other med problems:
-depression
-fatty liver
-tremors
-diaphragmatic hernia
-pulm nodules
-prior cheri
PLAN:
- Agree with surgical recs
- Given tolerance of regular diet and no abd pain ok from GI perspective for hospital d/c
- May benefit from repeat CTAP in 4-6wks outpatient basis
- Start miralax daily to prevent constipation
Will sign off please call for questions.
Subjective
Subjective
Date of Service: December 18, 2024
He denies any abd pain, nausea/vomiting. Ate 100% of entire regular meal for lunch without issues. No recent BM since admission
Objective
Data Reviewed
Laboratory Data:
Laboratory Results
12/18/24 05:45
12/18/24 05:45
Laboratory Results
PT 14.0 Sec (11.4-14.6) 12/17/24 01:30
INR 1.03 12/17/24 01:30
APTT 29.5 Sec (23.4-35.0) 12/17/24 01:30
Total Bilirubin 1.0 mg/dl (0.2-1.3) 12/18/24 05:45
AST 75 U/L (17-59) H 12/18/24 05:45
ALT 98 U/L (0-50) H 12/18/24 05:45
Alkaline Phosphatase 88 U/L (38-126) 12/18/24 05:45
Lipase 78 U/L (23-300) 12/17/24 01:30
Vital Signs and I&O:
Vital Signs
Temp Pulse Resp BP Pulse Ox
97.2 F 85 18 130/83 95
12/18/24 07:50 12/18/24 07:50 12/18/24 07:50 12/18/24 07:50 12/18/24 07:50
I&O
12/17/24 12/18/24 12/19/24
06:59 06:59 06:59
Intake Total 1900 / 1900
Output Total 400 / 400 550 / 550
Balance -400 / -400 1350 / 1350
Physical Exam
Physical Exam
GEN: No acute distress, conversant, pleasant
HEENT: anicteric, extraocular movements intact, clear oropharynx without exudates
GI: soft, non-distended, not tender to palpation, normal active bowel sounds, no hepatosplenomegaly
EXT: warm, well perfused, no edema bilaterally
NEURO: AAOx3, non-focal
--- NOTE | 2024-12-18 12:55 | W.DCSUMMARY ---
Discharge Summary
Discharge Data
Date of Admission: 12/17/24
Date of Discharge: 12/18/24
-
Pending Results: No
Hospital Course
Patient 79 years old male history of asthma, depression, dementia, fatty liver disease, diaphragmatic hernia, came into the hospital with abdominal pain and rectal bleeding. Patient had a CT scan of the abdomen that showed superior mesenteric
artery aneurysm with mural thrombus and possible pneumatosis intestinalis within the cecum. He was initially kept n.p.o. IV fluids and broad-spectrum antibiotics. GI consulted who subsequently consulted vascular surgery and general surgery.
Patient had a follow-up CTA of the abdomen and pelvis that showed stable thrombus on the SMA and vascular surgery would like to follow-up as outpatient. He tolerated diet and did not have any abdominal pain nausea vomiting or active bleeding while
in the hospital. GI and surgery cleared him for discharge today and GI will follow-up with him as outpatient. Otherwise, patient hemodynamically stable, lactic acid back to normal, benign abdominal exam, tolerating diet. He will be discharged in
stable condition today.
Discharge duration: 35 minutes
Discharge Plan
-
Patient Disposition: Assisted Living
Discharge Diagnosis/Procedures: Cecal pneumatosis. Superior mesenteric artery aneurysm with thrombus. Rectal bleeding. Hypocalcemia. Hypokalemia. Elevated liver function test. Elevated lactate.
Condition: Fair
Diet: Low Residue
Activity: As tolerated
Blood Work: Please PCP to order CBC, CMP within 1 week.
Others Tests: Prior to your follow up with Dr. David Abarca on 06/18/[address] angio of abdomen/pelvis the week prior to your appointment, you will need to call central scheduling at to make the appointment for the
CT scan. The script for the CT scan has been sent electrotonically.
Referrals:
David Abarca MD [Active] - 06/18/25 3:30 pm (Vascular office follow up)
Linda Kwan DO [Family Provider] - in less than 1 week
Iesha Tran DO [Active] - (4-6wks for pneumotosis)
Prescriptions:
New
polyethylene glycol 3350 17 gram Powder In Packet
17 g PO DAILY Qty: 14 0RF
Continued
Trelegy Ellipta 100-62.5-25 mcg Blister With Device
1 inh INHALATION R DAILY
acetaminophen 325 mg Tablet
650 mg PO Q6HPRN PRN (Reason: mild Pain / Fever)
fexofenadine 180 mg Tablet
180 mg PO DAILY
albuterol sulfate 90 mcg/actuation Hfa Aerosol Inhaler
2 puff INHALATION R Q4HPRN PRN (Reason: SOB)
fluticasone propionate 50 mcg/actuation [place],Suspension
2 spray INTRANASAL DAILY
escitalopram oxalate 10 mg Tablet
15 mg PO HS
travoprost 0.004 % Drops
1 drp BOTH EYES HS
guaifenesin 100 mg/5 mL Liquid
200 mg PO Q4HPRN PRN (Reason: cough)
Refresh Classic (PF) 1.4-0.6 % Dropperette
1 drp BOTH EYES TID
Discharge Orders:
Discharge Patient (As Directed); Ordered 12/18/24
Ordered By: Frankie Cruz
Discharge Date and Time
Discharge Date/Time: 12/18/24 14:58
Print Language: ARMENIAN
--- NOTE | 2024-12-18 13:02 | CM ---
Addendum entered by Karo Sprague 12/18/24 14:08:
clinicals faxed.
Original Note:
Patient seen bedside.
Spoke with daughter via phone.
Patient lives at [facility], however he is alert and oriented per daughter, he lives there with his spouse who has memory problems.
Per daughter he sits all day and rarely does anything.
Patient had received therapy through [facility].
Patient independent prior to admission.
Per Chitra no script needed for Black.
PCP; Aniya
Pharmacy: [facility]
Plan: back to [facility], daughter will transport (will be here around 2:30)
[place]
report# [phone]
[2024-12-18] MEDS: MIRALAX 17 GRAMS PO (14:00)
[2024-12-18 14:11] VITALS: BP 137/89; PULSE 80; O2SAT 96
[2024-12-18 14:45] VITALS: BP 150/88
--- NOTE | 2024-12-20 12:14 | CM ---
Post dc VM received from [facility]
Noted pt is current with them and needs [facility] referral and order as requested by Hari
Sent via [facility] per her request
== END 2024-12-18 14:58 | disposition home or self-care (01) | DRG 378 ==
LOC: 3 WEST ACU 05:16
PROVIDERS: Nurse Practitioner Adult Health; ADMITTING PHYSICIAN Hospitalist; ATTENDING PHYSICIAN Hospitalist; CONSULT PHYSICIAN Internal Medicine; EMERGENCY PHYSICIAN Emergency Medicine; FAMILY PHYSICIAN Family Medicine; OTHER PHYSICIAN Nurse Practitioner
DX: K92.2 Gastrointestinal hemorrhage, unspecified (principal); K76.6 Portal hypertension; E83.51 Hypocalcemia; D69.6 Thrombocytopenia, unspecified; J45.998 Other asthma; Z66 Do not resuscitate; K76.0 Fatty (change of) liver, not elsewhere classified; K44.9 Diaphragmatic hernia without obstruction or gangrene; I72.8 Aneurysm of other specified arteries; G25.0 Essential tremor
CPT/HCPCS: 74174; 74177; 80048; 80053; 80076; 83605; 83690; 84484; 85025; 85027; 85610; 85730; 93005; 94640; 96361; 96374; 97163; 99285; Q9967

== ENCOUNTER 2025-04-02 04:58 | Emergency (ER) | payer MEDICARE, BC, SELFPAY ==
[2025-04-02 05:01] VITALS: BP 144/96
[2025-04-02 05:49] LABS: Hematocrit 48.9 % (39.0-52.0); Hemoglobin 16.3 g/dL (13.0-18.0); Mean Corp Hgb Conc. 33.3 g/dL (33.0-37.0); Mean Corpuscular Volume 96.4 fL (80.0-94.0); Nucleated Red Blood Cells % 0 % (-); Platelet Count 144 10^3/uL (130-400); Red Cell Dist. Width 13.8 % (11.5-14.5)
[2025-04-02 05:50] VITALS: BMI 25.4
--- NOTE | 2025-04-02 05:52 | ED.GENMED ---
History of Present Illness
General
Chief Complaint: Breathing Problem
Source: patient
Exam Limitations: none
Time Seen by Provider: 04/02/25 05:23
Nursing documentation reviewed up to this point in time: agreed with
History of Present Illness
History of Present Illness:
79-year-old male presenting to the emergency department today with concerns of wheezing from his nursing facility. Seem to start tonight. He denies any additional symptoms or concerns.
Past History
Past History
ED Past Medical History: Asthma (Asthma/bronchiectasis), Psychiatric (Anxiety), Other (Essential tremor) and Other (Pneumonia with hospitalization November 2024)
ED Past Surgical History: Cholecystectomy
Social History
Tobacco: Non-smoker
Alcohol: None
Personal:
Living: penitentiary
Employment: Retired
Family History
Family History: Other (Noncontributory)
Review of Systems
Review of Systems
Allergies reviewed?: Yes
All Other Systems: ROS reviewed and negative except as documented in HPI and ROS
Phy Exam
Physical Exam
Physical Exam:
GENERAL: Alert , in no apparent distress
EYE: pupils equal and reactive
NECK: Supple, no significant adenopathy.
ENT: o/p clr, mmm.
CARDIAC: Regular rate and rhythm .
LUNGS: Diffuse wheezing with exhalation general good air movement
ABDOMEN: Soft, without focal tenderness, no r/g, no cvat
NEUROLOGICAL: Alert and oriented, no focal neuro deficits
SKIN: Warm and dry, skin intact.
MUSCULOSKELETAL: No edema, well perfused.
PSYCH: Normal and appropriate interaction.
Scores
Heart Failure Risk
Heart Failure Risk Score: Not Applicable
Course
Orders/Labs/Results
Orders:
Orders
04/02/25 05:04
Electrocardiogram (*1) Urgent
Reason for Study: Other
Other Reason for Exam: Respiratory Distress
Cardiac Monitoring- Treatment ONCE
EKG- Treatment ONCE
IV Insert/Care/Rem.- Treatment PRN
CR Chest - 2 Views Urgent
Comment:
Reason For Exam: respiratory distress
04/02/25 05:33
Complete Blood Count/With Diff Urgent
Comprehensive Metabolic Panel Urgent
NT-proBNP Urgent
Troponin I Urgent
04/02/25 05:41
Dexamethasone Sod Phosphate [Decadron] 10 mg IV NOW STA
Ipratropium/Albuterol Sulfate [Duoneb] 3 ml INH R NOW ONE
Abnormal Lab Results
04/02/25
05:33
MCV 96.4 H fL
(80.0-94.0)
MCH 32.1 H pg
(27.0-31.0)
MPV 11.1 H fL
(7.4-10.4)
Absolute Monos (auto) 0.7 H 10^3/uL
(0.1-0.6)
Absolute Eos (auto) 1.1 H 10^3/uL
(0-0.7)
Lymphocytes % 17.7 L %
(20.5-51.1)
Monocytes % 9.5 H %
(1.7-9.3)
Eosinophils % 15.3 H %
(0-6)
Glucose 102 H mg/dl
(70-99)
Calcium 8.3 L mg/dl
(8.4-10.2)
ALT 51 H U/L
(0-50)
04/02/25 05:33
04/02/25 05:33
Vital Signs
Initial and Last Documented VS:
Initial Vital Signs
Temp Pulse Resp BP Pulse Ox
98.0 F 99 22 144/96 94
04/02/25 05:01 04/02/25 05:01 04/02/25 05:01 04/02/25 05:01 04/02/25 05:01
Last Documented Vital Signs
Temp Pulse Resp BP Pulse Ox
98.0 F 98 22 142/90 94
04/02/25 05:01 04/02/25 08:05 04/02/25 08:05 04/02/25 08:05 04/02/25 08:05
MDM/Problems Addressed
MDM/Problems Addressed:
79-year-old male presenting to the emergency department today with concerns of shortness of breath at his nursing facility. Found to have wheezing with exhalation on exam. He denies additional symptoms otherwise. Pulse ox here in the low 90s room
air. Does have history of asthma. Patient was given dexamethasone and DuoNeb's and had significant improvement of symptoms. No ongoing complaints at this time. Pulse ox remained in the 90s throughout ER stay and was able to ambulate with his
walker. At this point patient stable for outpatient management return precautions given.
*Pulse Oximetry
SaO2: 92
Oxygen Mode of Delivery: Room air
Patient hypoxic: no (94)
*Critical Care Note
Total Time (30-74mins, 75-104mins- exclusive of procedures): Not Applicable
ED Attending Note
-
Portions of this chart may have been created with voice recognition software.� Occasional wrong word or��sound alike� substitutions may have occurred due to the inherent limitations of voice recognition software.
Discharge Plan
Departure
Patient Disposition: Home (Routine Discharge)
Date of Disposition: 04/02/25
Time of Disposition: 06:54
Patient with high blood pressure during this ER visit?: No
Condition: Good
Covid-19: Not Applicable
Discharge Problem:
Asthma
Instructions: Asthma, Adult (DC)
Prescriptions:
New
prednisone 20 mg tablet
40 mg PO DAILY 4 Days Qty: 8 0RF
No Action
Trelegy Ellipta 100-62.5-25 mcg Blister With Device
1 inh INHALATION R DAILY
Rx Instructions:
RINSE MOUTH AFTER USING
acetaminophen 325 mg Tablet
650 mg PO Q6HPRN PRN (Reason: mild Pain / Fever)
fexofenadine 180 mg Tablet
180 mg PO DAILY
albuterol sulfate 90 mcg/actuation Hfa Aerosol Inhaler
2 puff INHALATION R Q4HPRN PRN (Reason: SOB)
fluticasone propionate 50 mcg/actuation [place],Suspension
2 spray INTRANASAL DAILY
escitalopram oxalate 10 mg Tablet
20 mg PO HS
travoprost 0.004 % Drops
1 drp BOTH EYES HS
Refresh Classic (PF) 1.4-0.6 % Dropperette
1 drp BOTH EYES TID
polyethylene glycol 3350 17 gram Powder In Packet
17 g PO DAILY Qty: 14 0RF
ipratropium-albuterol 0.5 mg-3 mg(2.5 mg base)/3 mL Solution For Nebulization
3 ml INHALATION Q6H PRN (Reason: wheezing)
albuterol sulfate 2.5 mg /3 mL (0.083 %) Solution For Nebulization
2.5 mg INHALATION Q4H PRN (Reason: wheezing)
budesonide 0.5 mg/2 mL Suspension For Nebulization
0.5 mg INHALATION BID
Aspercreme Max 16 % Liquid
1 ea TOPICAL BID
Aspercreme Max 16 % Liquid
1 ea TOPICAL Q4H PRN (Reason: arthritis pain)
Referrals:
Linda Kwan DO [Family Provider, Family Practice]
Activity Restrictions/Additional Instructions:
You came to the emergency department today with concerns of shortness of breath. You are found to have wheezing. The remainder of your workup was reassuring. Please take the prescribed steroid and use your inhalers. Return for any worsening, new
or concerning symptoms.
Interventions
Interventions:
*Risk Screen - Suicide Last Done: 04/02/25 05:01
*General Assessment Last Done: 04/02/25 05:01
*Neglect/Abuse Screening Last Done: 04/02/25 05:01
*ED- Fall Risk Assessment Last Done: 04/02/25 05:01
*ED COVID-19 Vaccine History Last Done: 04/02/25 05:01
*Nursing Disposition Last Done: 04/02/25 08:13
ED- Cardiac Assessment Last Done: 04/02/25 05:05
ED- Pulmonary Assessment Last Done: 04/02/25 05:05
Discharge Date and Time
Discharge Date/Time: 04/02/25 08:15
Print Language: TAJIK
[2025-04-02] MEDS: DUONEB 3 ML INH (05:54)
[2025-04-02] MEDS: DECADRON 10 MG IV (05:54)
[2025-04-02 06:00] VITALS: BP 124/76
[2025-04-02 06:07] LABS: ALT (SGPT) 51 U/L (0-50); AST (SGOT) 43 U/L (17-59); Albumin 3.5 g/dl (3.5-5.0); Alkaline Phosphatase 98 U/L (38-126); Blood Urea Nitrogen 19 mg/dl (9-20); Calcium 8.3 mg/dl (8.4-10.2); Carbon Dioxide 29 mmol/L (22-30); Chloride 106 mmol/L (98-107); Estimated Creatinine Clearance 71 ml/min; Glucose 102 mg/dl (70-99); Potassium 4.0 mmol/L (3.5-5.1); Sodium 139 mmol/L (135-145); Total Protein 6.5 g/dl (6.3-8.2); eGFR > 60.00
[2025-04-02 06:19] LABS: Troponin I < 0.012 ng/ml
[2025-04-02 06:50] VITALS: BP 132/81
--- NOTE | 2025-04-02 06:55 | EDRN ---
Pt was ambulatory in w/ [facility] PCT and [facility] LANCE and did very well. POX did decrease to 89 and HR up to 122.
--- NOTE | 2025-04-02 07:06 | EDRN ---
Fawn LANCE called report at this time to [facility]. is working on transport back to facility.
[2025-04-02 08:05] VITALS: BP 142/90
== END 2025-04-02 08:15 | disposition home or self-care (01) ==
LOC: EMR 04:58
PROVIDERS: EMERGENCY PHYSICIAN Student in an Organized Health Care Education/Training Program; FAMILY PHYSICIAN Family Medicine
DX: J45.909 Unspecified asthma, uncomplicated (principal)
CPT/HCPCS: 99285; 96374; 94640; 71046; 80053; 83880; 84484; 85025; 93005